=== PATIENT | male | born 1960 | race Caucasian/White ===

== ENCOUNTER 2022-05-04 17:00 | Outpatient (CLI) | payer OTHER, SELFPAY ==
--- NOTE | ~2022-05-04 | XR_ITS ---
XR hand RT min 3V DATE: 05/04/2022 17:18 INDICATION: Injury 2 weeks ago. Fourth finger pain. Previous fourth digit surgery. TECHNIQUE: 3 views of right hand COMPARISON: None FINDINGS: There is chronic partial loss and deformity of the tuft of the distal phalanx of the fourth digit. No recent fracture or dislocation, periosteal reaction or bone destruction, erosive change or chondro calcinosis. IMPRESSION: Chronic deformity of the tuft of the distal phalanx of fourth digit; no acute finding Reviewed, dictated and finalized at location A. IMPRESSION: Chronic deformity of the tuft of the distal phalanx of fourth digit ; no acute finding
== END 2022-05-04 17:01 | disposition home or self-care (01) ==
PROVIDERS: PCP Internal Medicine Infectious Disease; Visit Provider Internal Medicine Infectious Disease
DX: S69.91XA Unspecified injury of right wrist, hand and finger(s), initial encounter (principal); X58.XXXA Exposure to other specified factors, initial encounter
CPT/HCPCS: 73130

== ENCOUNTER 2023-10-18 10:14 | Emergency (ER) | payer OTHER, SELFPAY ==
--- NOTE | ~2023-10-18 | XR_ITS ---
EXAMINATION: XR ankle LT min 3V DATE: 10/18/2023 10:47 INDICATION: Left ankle pain. Fall. TECHNIQUE: 4 views of left ankle were obtained. COMPARISON: None. FINDINGS: Bone alignment is normal. No fracture. There is heterotopic ossification distal to medial m alleolus. Joint spaces are normal. There is ankle soft tissue swelling. IMPRESSION: 1. No fracture. Reviewed, dictated and finalized at location E. LE HOME LABORER IMPRESSION: 1. No fracture.
--- NOTE | ~2023-10-18 | XR_ITS ---
XR knee LT min 4V 10/18/2023 10:48 Indication: Left knee pain Procedure: 4 views left foot Comparison: No prior studies for comparison. Findings: No fracture or traumatic. No significant soft tissue abnormality. No foreign bodies. No killian nt effusion. Impression: 1: Mild osteoarthritis of the left knee. Reviewed, dictated and finalized at location B. LY THERAPIST Impression: 1: Mild osteoarthritis of the left knee.
--- NOTE | ~2023-10-18 | XR_ITS ---
XR shoulder LT min 2V 10/18/2023 10:48 INDICATION: Left shoulder pain PROCEDURE: 4 views left shoulder COMPARISON: No prior studies for comparison. FINDINGS: Fracture, dislocation or subluxation is not identified. The soft tissues appear within norm al limits. No foreign bodies are identified. IMPRESSION: 1: NO ACUTE BONE OR JOINT ABNORMALITY IDENTIFIED. Reviewed, dictated and finalized at location B. PAPER SUBSCRIPTION SOLICITOR
[2023-10-18 10:21] VITALS: BP 169/98; PULSE 91; RESP 16; TEMP 36.7; O2SAT 97
--- NOTE | 2023-10-18 10:32 | ED.LOWEXIN ---
HPI - Extremity Injury (Lower) General Chief Complaint: Extremity Injury, Lower Stated Complaint: FALL/L KNEE/L ANKLE/L SHOULDER INJURY Time Seen by Provider: 10/18/23 10:26 Source: patient and RN notes reviewed Mode of arrival: ambulatory Limitations: no limitations History of Present Illness HPI Narrative: Patient presents today complaining of left knee pain, left ankle pain, and left shoulder pain. Symptoms began last night after he was walking down a hill and twisted his ankle in a hole and fell to the ground. States his shoulder did not start hurting until he was in bed last night. He has been ambulatory with increased pain since the fall. Currently rates his pain 8/10 and has been taking ibuprofen with some relief. Pain is worst in his knee. Denies numbness or tingling in the extremities. Related Data Home Medications Medication Instructions Recorded Confirmed allopurinol 100 mg tablet 100 mg PO DAILY 10/18/23 10/18/23 famotidine 20 mg tablet 20 mg PO DAILY 10/18/23 10/18/23 lisinopril 10 mg tablet 10 mg PO DAILY 10/18/23 10/18/23 metoprolol succinate 50 mg 50 mg PO DAILY 10/18/23 10/18/23 tablet,extended release 24 hr pantoprazole 40 mg tablet,delayed 40 mg PO DAILY 10/18/23 10/18/23 release rosuvastatin 20 mg tablet 20 mg PO DAILY 10/18/23 10/18/23 Allergies Allergy/AdvReac Type Severity Reaction Status Date / Time ONE UNKNOWN MEDICATION Allergy Mild Unknown Uncoded 10/18/23 10:24 ALLERGY TREE POLLEN--MOSTLY OAK Allergy Mild Unknown Uncoded 10/18/23 10:24 Review of Systems Review of Systems: CONSTITUTIONAL: Denies body aches, fever, chills, or sweats. EYES: Denies visual changes, redness, or discharge. ENT: Denies rhinorrhea, congestion, sore throat, or otalgia. CARDIOVASCULAR: Denies chest pain, palpitations, or edema. RESPIRATORY: Denies cough or dyspnea. GASTROINTESTINAL: Denies abdominal pain, nausea, vomiting, or diarrhea. GENITOURINARY: Denies dysuria or hematuria. SKIN: Denies rash, itching, or wounds. MUSCULOSKELETAL: Denies back pain, or myalgia.+ left shoulder pain, left knee pain, left ankle pain NEUROLOGIC: Denies headache, numbness, tingling, or weakness. PSYCH: Denies depression or anxiety. PMFSH Comments At time of signature, I have reviewed and agree with nursing past medical, surgical, social and family history unless otherwise noted. Please see nursing chart for further information. There is no relevant family history pertinent to the presenting complaint Exam Narrative: GENERAL: Well-appearing, well-nourished, and in no acute distress. HEAD: Normocephalic, atraumatic. EYES: EOMI. No redness or drainage. Conjunctivae normal. ENT: Mucous membranes pink and moist. NECK: Normal AROM. CHEST: No respiratory distress. EXTREMITIES: Left shoulder: Tenderness to the anterior shoulder. Pain with range of motion starting at 90? in all directions, as well as internal and external rotation. Distal sensation intact. Capillary refill normal. Radial pulse normal. No edema, ecchymosis noted. Left knee: Tenderness to the medial joint line. Pain with range of motion. No bony tenderness of the patella. No tenderness of the patellar tendon. Distal sensation intact. No edema noted. Left ankle: Tenderness laterally with moderate localized edema. No tenderness medially. No tenderness of the foot. Distal sensation intact. Capillary refill normal. Pedal pulse normal. Full range of motion of the ankle with mild increased pain. SKIN: Warm, dry, no rash. Capillary refill normal. Normal skin turgor. NEURO: No focal deficits. Alert and oriented x3. Gait steady. PSYCH: Normal affect. No signs of depression or anxiety. Course Course Level of Care: Express Care Visit Vital Signs Vital signs: Vital Signs Temperature 98.1 F 10/18/23 10:21 Pulse Rate 91 10/18/23 10:21 Respiratory Rate 16 10/18/23 10:21 Blood Pressure 169/98 H 10/18/23 10:21 Pulse Oxime
== END 2023-10-18 11:05 | disposition home or self-care (01) ==
PROVIDERS: Emergency Provider Nurse Practitioner; PCP Internal Medicine Infectious Disease
DX: S93.402A Sprain of unspecified ligament of left ankle, initial encounter (principal); S89.92XA Unspecified injury of left lower leg, initial encounter; S46.912A Strain of unspecified muscle, fascia and tendon at shoulder and upper arm level, left arm, initial encounter; Z79.899 Other long term (current) drug therapy; W18.39XA Other fall on same level, initial encounter
CPT/HCPCS: 73030; 73564; 73610; 99214; G0463

== ENCOUNTER 2025-01-05 19:35 | Emergency (ER) | payer OTHER, SELFPAY ==
--- NOTE | ~2025-01-05 | XR_ITS ---
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 The glenohumeral and acromioclavicular joint space is maintained The visualized portion of the adjacent left lung is clear. The humeral head is well seated within the glenoid fossa. Extraosseous density adjacent to the acromion suggesting calcific tendinosis, unchanged from 10/18/20 23. IMPRESSION: No acute fracture or anterior dislocation. Reviewed, dictated and finalized at location A. L OPPORTUNITY OFFICER
--- OUTSIDE RECORDS SUMMARY | 2025-01-05 19:37 | XMS_ITS | Encounter Summary ---
Author Organization [facility] Healthcare Address [address] [place] [address] Care Team Providers Care Bankruptcy Judge Name Role Phone Mickey Bowling MD Primary Care Provider [phone] Lily King DO Unavailable [phone] Encounter Details Date Type Department Care Team (Late st Contact Info) Description 01/04/2025 Telephone [facility] [address] [place] [address] Mickey Bowling MD [address] [place] [address] Social History Tobacco Use Types Packs/Day Years Used Date Smoking Tobacco: Never Smokeless Tobacco: Never Alcohol Use Standard Drinks/Week Comments Yes 12 (1 standard drink = 0.6 oz pu re alcohol) PHQ-2 Answer Date Recorded PHQ-2 Total Score (If total score is 3 or more points, staff should administer the PHQ-9) 0 01/01/2025 Personal Safety Answer Date Recorded Have you ever been in or are you currently in a harmful physical or emotional relationship or is someone making you feel afraid or unsafe? 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
--- OUTSIDE RECORDS SUMMARY | 2025-01-05 19:37 | XMS_ITS | Clinical Summary ---
Author Organization [facility] Address [address] [place] [address] Phone Care Team Providers Care Developer Support Engineer Name Role Phone Mickey Bowling Ernesto OCHOA Primary Care Provider [phone] Allergies Active Allergy Reactions Criticality Noted Date Comments Apple Other (see Comments) 10/18/2024 Swelling of tongue Black [place]allo Pollen Allergy Skin Test Other (see Comments) 10/18/2024 Hazelnut (Filbert) Other (see Comments) 024 Swelling of tongue Prunus Persica Other (see Comments) 10/18/2024 Swelling of tongue Peanut (Diagnostic) Other (see Comments) 2023 Swelling of tongue/ difficulty swallowing Citrullus Vulgaris Swelling,Other (see Comments) 10/18/2024 Swelling of tongue Medications lisinopril (PRINIVIL, ZESTRIL) 10 MG Tablet Take 5 mg by mouth daily. 05/01/2024 Active pantoprazole (PROTONIX) 40 MG Tablet Delayed Response Take 1 Tablet by mouth daily. 09/14/2024 Active famotidine (PEPCID) 20 MG Tablet 1 Tablet nightly. 03/23/2024 Active rosuvastatin (CRESTOR) 20 MG Tablet 10 mg. 05/03/2024 Active metoprolol Succinate (TOPROL-XL) 50 MG TABLET SR 24 HR Take 1 Tablet by mouth daily. 09/14/2024 Active Active Problems Problem Noted Date Diagnosed Date Axillary lymphadenopathy 10/18/2024 Chronic left shoulder pain 10/18/2024 Encounters Date Type Department Care Team Description 10/30/2024 Telephone [facility] [address] [place] [address] Ar Nolan MD 10/24/2024 11:23 AM EPIC RADIANT ANALYST - 10/24/2024 11:59 PM EPIC RADIANT ANALYST Hospital En[facility] [address] [place] [address] Ar Nolan MD Discharge Disposition: Discharged to home or Selfcare 10/24/2024 9:06 AM EPIC RADIANT ANALYST - 10/24/2024 11:22 AM EPIC RADIANT ANALYST Hospital Encounter [facility] [address] [place] [address] Provider, Not On File Discharge Disposition: Discharged to home or Selfcare 10/23/2024 Travel 10/18/2024 9:40 AM EPIC RADIANT ANALYST [facility] [address] [place] [address] Ar Nolan MD Axillary lymphadenopathy (Primary Dx); Chronic left shoulder pain Discharge Disposition: Discharged to home or Selfcare 10/18/2024 Travel from Last 3 Months Family History Medical History Relation Name Comments High Cholesterol Father Hypertension Father Heart Disease Mother Heart Murmur High Cholesterol Mother Hypertension Mother Relation Name Status Comments Father Alive Mother Alive Social History Tobacco Use Types Packs/Day Years Used Date Smoking Tobacco: Never Passive Smoke Exposure: Never Smokeless Tobacco: Never Tobacco Cessation:Counseling Given: No Alcohol Use Standard Drinks/Week Comments Yes 0 (1 standard drink = 0.6 oz pur e alcohol) 2 drinks daily Sex and Gender Information Value Date Recorded Sex Assigned at Not on file Legal Sex Male 12:14 AM CDT Gender Identity Not on file Sexual Orientation Not on file Last Filed Vital Signs Vital Sign Reading Time Taken Comments Blood Pressure 157/94 10/18/2024 10:15 AM EPIC RADIANT ANALYST Pulse 82 10/18/2024 10:15 AM EPIC RADIANT ANALYST Temperature 36.9 C (98.4 F) 10/18/2024 10:15 AM EPIC RADIANT ANALYST Respiratory Rate 18 10/18/2024 10:1 5 AM EPIC RADIANT ANALYST Oxygen Saturation 97% 10/18/2024 10: 15 AM EPIC RADIANT ANALYST Inhaled Oxygen Concentration - - Weight 90.6 kg (199 lb 11.2 oz) 024 10:15 AM EPIC RADIANT ANALYST Height 177.8 cm (5' 10 ) 10/18/2024 10: 15 AM EPIC RADIANT ANALYST Body Mass Index 28.65 10/18/2024 10:15 AM EPIC RADIANT ANALYST Plan of Treatment Health Maintenance Due Date Last Done Comments Hepatitis C Virus (HCV) Screening 1961 Cologuard 2011 Immunochemical Fecal Occult Blood 2011 Pneumococcal Immunization (50+ years) (1 of 1 - PCV) 2011 PSA Discussion 2016 Colonoscopy 06/16/2034 06/16/2024 Colorectal Cancer Screening 06/16/2034 Respiratory Syncytial Virus (RSV) Immunization (Adult) (1 - 1-dose 75+ series) 2036 06/16/2024 DTaP/Tdap/Td Immunization Discontinued 09/19/2009 TdaP Immunization Completed 09/19/2009 Zoster Immunization Completed 03/30/2019, 9 Influenza Immunization Completed , 12/24/2022, 09/04/2021, Additional history exists SARS-COV-2 Immunization Completed 09/20/20 24, 01/26/2022, 04/01/2021, Additional history exists Hepatitis B Immunization Aged Out No longer eligible based on patient's age to complete this topic Meningococcal Immunization (ACWY) Aged Out No longer eligible based on patient's age to complete this topic Rotavirus Immunization Aged Out No lo nger eligible based on patient's age to complete this topic Procedures Procedure Name Priority Date/Time Associated Diagnosis Comments CT CHEST W CONTRAST Less Than 2 weeks 10/24/2024 11:55 AM EPIC RADIANT ANALYST Axillary lymphadenopathy POCT CREATININE Routine 10/24/2024 11:44 [address]IC [address] A[address] CT REFERENCE IMAGES FOR IMAGE IMPORT Routine 10/24/2024 9:06 AM EPIC RADIANT ANALYST from Last 3 Months Results * CT CHEST W CONTRAST (10/24/2024 11:55 AM EPIC RADIANT ANALYST) Anatomical Region Laterality Modality Chest N/A Computed Tomogra phy 10/24/2024 12:4 8 PM EPIC RADIANT ANALYST Impressions 10/24/2024 12:50 PM EPIC RADIANT ANALYST IMPRESSION: No acute findings identified to suggest etiology of the patient's symptoms. A few physiological appearing fatty lymph nodes are seen in the left axilla. Narrative 10/24/2024 12:50 PM EPIC RADIANT ANALYST EXAM DESCRIPTION: CT CHEST W CONTRAST REASON FOR STUDY: Lump of left axilla x 6 weeks with US on 10/09/24 showing enlarged abnormal lymph nodes. TECHNIQUE: CT scan of the chest performed with intravenous contrast using helical scanning technique with dynamic intravenous contrast injection. Reconstructed coronal and sagittal MPR images reviewed. All images stored on PACS. Automated exposure control was used as a dose optimization technique for this examination. CONTRAST TYPE/DOSE: 98mL of IOPAMIDOL 76 % IV SOLN injected via Intravenous COMPARISON: None available FINDINGS: LUNGS: No nodules or masses. No pneumonia. PLEURA: No effusion. No pneumothorax. MEDIASTINUM/PEGGY: No identified masses or abnormal nodes. HEART: Heart size is normal with no pericardial effusion. VASCULATURE: No thoracic aortic aneurysm. AXILLA: No adenopathy. A few physiological appearing fatty lymph nodes are seen. CHEST WALL: No masses. No subcutaneous air. HARDWARE/LINES/TUBES: None. UPPER ABDOMEN: No significant abnormality. MUSCULOSKELETAL: No significant abnormality. OTHER: No other significant abnormality. THIS IS AN ELECTRONICALLY VERIFIED FINAL REPORT 10/24/2024 12:48 PM - Electronically signed by Jayesh Beasley M.D. JA: [facility] Report ID: [id number] Reading Location: [id number] Procedure Note Jayesh Beasley MD - 10/24/2024 EXAM DESCRIPTION: CT CHEST W CONTRAST REASON FOR STUDY: Lump of left axilla x 6 weeks with US on 10/09/24 showing enlarged abnormal lymph nodes. TECHNIQUE: CT scan of the chest performed with intravenous contrast using helical scanning technique with dynamic intravenous contrast injection. Reconstructed coronal and sagittal MPR images reviewed. All images stored on PACS. Automated exposure control was used as a dose optimization technique for this examination. CONTRAST TYPE/DOSE: 98mL of IOPAMIDOL 76 % IV SOLN injected via Intravenous COMPARISON: None available FINDINGS: LUNGS: No nodules or masses. No pneumonia. PLEURA: No effusion. No pneumothorax. MEDIASTINUM/PEGGY: No identified masses or abnormal nodes. HEART: Heart size is normal with no pericardial effusion. VASCULATURE: No thoracic aortic aneurysm. AXILLA: No adenopathy. A few physiological appearing fatty lymph nodes are seen. CHEST WALL: No masses. No subcutaneous air. HARDWARE/LINES/TUBES: None. UPPER ABDOMEN: No significant abnormality. MUSCULOSKELETAL: No significant abnormality. OTHER: No other significant abnormality. THIS IS AN ELECTRONICALLY VERIFIED FINAL REPORT 10/24/2024 12:48 PM - Electronically signed by Jayesh Beasley M.D. JA: [facility] Report ID: [id number] Reading Location: [place] [address] IMPRESSION: No acute findings identified to suggest etiology of the patient's symptoms. A few physiological appearing fatty lymph nodes are seen in the left axilla. us Ar Nolan MD IMG CT ORDERABLES Final Result * POCT Creatinine (10/24/2024 11:44 AM EPIC RADIANT ANALYST) CREATININE - POCT 1.1 0.6 - 1.3 mg/dL 10/24/2024 11:47 AM EPIC RADIANT ANALYST [facility] Blood 10/24/2024 11:4 4 AM EPIC RADIANT ANALYST 10/24/2024 11:47 AM EPIC RADIANT ANALYST us None Provider POINT OF CARE TESTING Final Resu lt [facility] [address] [place] [address] * CT REFERENCE IMAGES FOR IMAGE IMPORT (10/24/2024 9:06 AM EPIC RADIANT ANALYST) us Not On File Provider IMG CT ORDERABLES Final Res ult from Last 3 Months Insurance [facility] Care Teams Developer Support Engineer Relationship Specialty Start Date End Date Mickey Bow[place] [address] [place] [address] PCP - General Infectious Disease 10/16/24
--- OUTSIDE RECORDS SUMMARY | 2025-01-05 19:38 | XMS_ITS | Encounter Summary ---
Author Organization [facility] Address [address] [place] [address] Phone Care Team Providers Care Molded Frames Assembler Name Role Phone Mickey Bowling MD Primary Care Provider [phone] Lily King DO Unavailable [phone] Encounter Details Date Type Department Care Team (Late st Contact Info) Description 05/04/2022 Orders Only [facility] [address] [place] [address] Scanning, Provider Social History Tobacco Use Types Packs/Day Years Used Date Smoking Tobacco: Never Smokeless Tobacco: Never Alcohol Use Standard Drinks/Week Comments Yes 12 (1 standard drink = 0.6 oz pu re alcohol) PHQ-2 Answer Date Recorded PHQ-2 Total Score (If total score is 3 or more points, staff should administer the PHQ-9) 0 02/28/2021 Sex and Gender Information Value Date Recorded Sex Assigned at Not on file Legal Sex Male 2:03 PM SAFETY ADMIN ASSISTANT Gender Identity Not on file Sexual Orientation Not on file documented as of this encounter Plan of Treatment Not on file documented as of this encounter Procedures Procedure Name Priority Date/Time Associated Diagnosis Comments SCAN - RADIOLOGY/IMAGING 05/04/2022 documented in this encounter Results * SCAN - RADIOLOGY/IMAGING (05/04/2022) Anatomical Region Laterality Modality Other us Provider Scanning Final Result documented in this encounter Visit Diagnoses Not on filedocumented in this encounter Additional Health Concerns Infection Onset Date Last Indicated Resolved Time COVID: Suspected 10/20/2022 10/20/2022 10/20/2022 3:53 PM SAFETY ADMIN ASSISTANT documented as of this encounter Care Teams Molded Frames Assembler Relationship Specialty Start Date End Date Mickey Bowling MD [address] [address] PCP - General 08/10/11 Lily King DO [address] [address] Consulting Physician Otolaryngology 07/20/19 documented as of this encounter
--- OUTSIDE RECORDS SUMMARY | 2025-01-05 19:38 | XMS_ITS | Clinical Summary ---
Author Organization [facility] [address] Address [address] [place] [address] Phone Care Team Providers Care Chief Compressor Station Engineer Name Role Phone Mickey Bowling MD Primary Care Provider [phone] Lily King DO Unavailable [phone] Allergies Active Allergy Reactions Criticality Noted Date Comments Apple Other (See comments) Low . Banana Swelling Medium 07/07/2018 Throat swells Greenlee Peanut Other (See comments) Low . Watermelon Anaphylaxis High 07/26/2018 Medications famotidine (PEPCID) 20 mg tablet TAKE 1 TABLET NIGHTLY 90 tablet 3 4 Active lisinopriL (PRINIVIL,ZESTRIL ) 10 mg tablet TAKE 1 TABLET DAILY 90 tablet 3 4 Active rosuvastatin (CRESTOR) 20 mg tablet TAKE ONE-HALF (1/2) TABLET DAILY 90 tablet [address] (PROTONIX) 40 mg EC tabletIndications :Gastroesophageal reflux disease without esophagitis TAKE 1 TABLET DAILY 90 tablet 1 4 Active allopurinoL (ZYLOPRIM) 100 mg tablet TAKE 1 TABLET DAILY 90 tablet 1 4 Active metoprolol XL (TOPROL-XL) 50 mg extended release tabletIndications :Essential hypertension TAKE 1 TABLET DAILY 90 tablet 1 4 Active Active Problems Problem Noted Date Diagnosed Date Enlarged lymph nodes in armpit 10/09/2024 Assessment & Plan (01/01/2025 6:27 PM REAL ESTATE MANAGEMENT SPECIALIST): WITH A NEG WORK UP BY HEMATOLOGY AND A NEG CT OF THE CHEST THOUGHT TO BE REACTIVE Assessment & Plan (10/09/2024 4:40 PM REAL ESTATE MANAGEMENT SPECIALIST): BENIGN APPREARNECE REACTIVE IN NATURE ARRANGE LEFT AXILLARY US Gastric wall thickening 06/07/2024 Colon wall thickening 06/07/2024 Routine physical examination 06/07/2024 Assessment & Plan (06/23/2024 7:03 AM CDT): IMMUNIZATIONS WERE REVIEWED ESSENTIAL HYPERTENSION GOAL BP LESS THEN 130/ 80 OR UNDER MIXED HYPERLIPIMDEIA : GOAL LDL IS UNDER 100 DISCUSSED DIETARY CHANGES AND ALSO LIMITING ALCOHOL USAGE IDIOPATHIC GOUT : ON ALLOPURINOL EGD/ COLONSCOPY AND CT OF THE ABDOMEN FINDINGS REVIEWED ARRANGE LIVER US FOR F/U ON POSSIBLITY OF LIVER CIRRHOSIS FINDING EYE EXAM IS UPTODATE DENTAL EXAM UPTODATE Colicky LLQ abdominal pain 05/11/2024 Assessment & Plan (05/11/2024 6:24 PM CDT): DDX INCLUDE : DIVERTICULTIS / ARRANGE BW AND START AUGMENTIN 875 MG PO BID ARRANGE CT OF THE ABODMEN AND PELVIS WITH ORAL AND IV CONTRAST ALSO CBC/CMP/ AMYLASE AND LIPASE DISCUSSED A LOW FIBER DIET DURING THE NEXT 48 HOURS THEN A HIGH FIBER DIET . COLONSCOPY IN 2019 WAS NEG Hemorrhoids 11/12/2022 Assessment & Plan (11/12/2022 10:57 AM REAL ESTATE MANAGEMENT SPECIALIST): When he had the acute pain a week ago this hemorrhoid likely thrombosed. Now he is on the back end of things were symptoms are returning back to baseline. Nothing acutely to do with this area. We have discussed surgical options to remove the hemorrhoid columns to prevent them from coming back. We have also discussed just conservative means with a good bowel regimen and avoiding straining. He is going to wait to see if symptoms worsen or return prior to any further intervention. I think this is reasonable. He will call us back if anything changes or if he would like to set up surgery. Family history of colon cancer 02/06/2020 Overview (02/06/2020): Added automatically from request for surgery [id number] Laryngeal spasm 04/07/2019 Assessment & Plan (07/13/2019 4:19 PM CDT): Continue Protonix and Zantac Continue nasal saline and Astelin Cetirizine 10 mg daily Call if no improvement in 6 weeks Assessment & Plan (04/07/2019 3:14 PM CDT): Continue Pantoprazole in the AM, start Zantac at bedtime LPR discussed and Handout provided Allergic rhinitis due to pollen 04/07/2019 Assessment & Plan (07/13/2019 4:19 PM CDT): Continue Protonix and Zantac Call if no improvement in 6 weeks Assessment & Plan (04/07/2019 3:09 PM CDT): Nasal saline followed Astelin 2 sprays into each nostril while looking down over the sink, do not sniff in or blow nose after use twice daily Varicose veins of lower extremity with pain, rig ht 10/31/2018 Overview (10/31/2018): Added automatically from request for surgery [id number] Varicose veins of lower extr emities with complications, right 10/31/2018 Overview (10/31/2018): Added automatically from request for surgery [id number] Shoulder pain 01/07/2015 Overview (03/05/2017): Shoulder pain Gastroesophageal reflux disease without esophagi tis 01/07/2015 Overview (03/05/2017): Acid reflux Essential hypertension 04/14/2014 Overview (03/04/2017): Hypertension Assessment & Plan (01/01/2025 6:27 PM REAL ESTATE MANAGEMENT SPECIALIST): GOAL BP IS 130/80 OR LESS LOW NA DIET Obstructive sleep apnea syndrome 04/14/2014 Overview (03/04/2017): CRISTÓBAL (obstructive sleep apnea) Mixed hyperlipidemia 04/14/2014 Overview (03/04/2017): Hyperlipidemia Assessment & Plan (01/01/2025 6:27 PM REAL ESTATE MANAGEMENT SPECIALIST): GOAL LDL IS UNDER 100 LFT ARE NL Allergic conjunctivitis 04/14/2014 Overview (03/04/2017): Allergic conjunctivitis Encounters Date Type Department Care Team Description 01/04/2025 Telephone [facility] [address] [place] [address] Mickey Bowling MD 01/01/2025 4:15 PM REAL ESTATE MANAGEMENT SPECIALIST Ancillary Procedure [facility] [address] [place] [address] Chronic bilateral low back pain, unspecified whether sciatica present 01/01/2025 3:15 PM REAL ESTATE MANAGEMENT SPECIALIST Office Visit [facility] [address] [place] [address] Mickey Bowling MD Chronic bilateral low back pain, unspecified whether sciatica present (Primary Dx); Essential hypertension; Prostate cancer screening; Enlarged lymph nodes in armpit; Mixed hyperlipidemia 12/26/2024 8:50 AM REAL ESTATE MANAGEMENT SPECIALIST Lab [facility] [address] [place] [address] Need for hepatitis B screening test; Mixed hyperlipidemia 12/26/2024 8:15 AM REAL ESTATE MANAGEMENT SPECIALIST Ancillary Procedure [facility] [address] [place] [address] scan 2024 Telephone [facility] [address] [place] [address] Mickey Bowling MD 10/13/2024 Telephone [facility] [address] [place] [address] Gail Chen RN 10/09/2024 3:45 PM REAL ESTATE MANAGEMENT SPECIALIST Ancillary Procedure [facility] [address] [place] [address] Enlarged lymph node 10/09/2024 3:15 PM REAL ESTATE MANAGEMENT SPECIALIST Office Visit [facility] [address] [place] [address] Mickey Bowling MD Enlarged lymph node (Primary Dx); Enlarged lymph nodes in armpit from Last 3 Months Immunizations Name Administration Dates Next Due Influenza, Quadrivalent, Spl it, Intramuscular 01/08/2019,11/06/2016 Influenza, Quadrivalent, Spl it, Preservative Free, Intramuscular 12/24/2022,09/04/2021,11/03/2020 Influenza, Split 11/15/2013,10/12/2012 Influenza, Trivalent, IM (MDV) 12/20/2014,2012 Influenza, Trivalent, Preser vative Free, Intramuscular 09/20/2024 Influenza, Unspecified 09/20/2023,11/03/2020,08/2019 Moderna SARS-CoV-2 Monovalen t Vaccination (12+ YRS) 01/26/2022 Tdap 09/19/2009 ZOSTER Recombinant 03/30/2019,01/08/2019 Surgical History Surgery Date Site/Laterality Comments TONSILLECTOMY 11/29/1982 - 11/28/1983 tonsils removed HERNIA REPAIR 11/29/1982 - 11/28/1983 hernia repair EYE SURGERY 11/29/1982 - 11/28/1983 eye surgery HERNIA REPAIR 11/29/1971 - 11/28/1972 Hernia repair VASECTOMY 11/29/1999 - 11/28/2000 Vasectomy SURGERY SCROTAL / TESTICULAR 11/29/1973 - 11/28/1974 Undescending Testicles SHOULDER SURGERY 11/29/2014 - 11/28/2015 Right COLONOSCOPY 01/28/2020 - 02/27/2020 Medical History Medical History Date Comments Hx Other Medical Tonsillectomy i n 1982.; Comments: GIOVANNA 01/07/2015 - Hx Other Medical Eye surgery in 1982.; Comments: GIOVANNA 01/07/2015 - Hx Other Medical Hernia surg. in 1975, 1982 and 1989.; Comments: GIOVANNA 01/07/2015 - Hypertension Hyperlipidemia Blood clot associated with v ein wall inflammation Sleep apnea Does not wear pr escibed CPAP Other complications of anest hesia, sequela Slow to wake up to anesthesi a given in with eye surgery (Pterygium) PONV (postoperative nausea and vomiting) Personal history of other me dical treatment varicose veins biltateral le gs History of Naheed fundoplication 2005 Family History Medical History Relation Name Comments Hypertension Brother 3 Hypertension; Other Brother 4 Cholesterol; Alcohol abuse Father Alcoholism; Hypertension Father Hypertension; / Hypertension; Other Father Cholesterol; Hypertension Mother Hypertension; / Hypertension; Other Mother Pancreas proble ms; Relation Name Status Comments Brother 1 Alive Brother 2 Alive Brother 3 Brother 4 Father Alive Mother Alive Social History Tobacco [...] on file Legal Sex Male 2:03 PM REAL ESTATE MANAGEMENT SPECIALIST Gender Identity Not on file Sexual Orientation Not on file Obstetrics History Last Filed Vital Signs Vital Sign Reading Time Taken Comments Blood Pressure 124/72 01/01/2025 3:03 PM REAL ESTATE MANAGEMENT SPECIALIST Pulse 90 01/01/2025 3:03 PM REAL ESTATE MANAGEMENT SPECIALIST Temperature 36.7 C (98 F) 01/01/2025 3:03 PM REAL ESTATE MANAGEMENT SPECIALIST Respiratory Rate 16 01/01/2025 3:03 PM REAL ESTATE MANAGEMENT SPECIALIST Oxygen Saturation 96% 01/01/2025 3:03 PM REAL ESTATE MANAGEMENT SPECIALIST Inhaled Oxygen Concentration - - Weight 93.4 kg (206 lb) 01/01/2025 3:03 PM REAL ESTATE MANAGEMENT SPECIALIST Height 177.8 cm (5' 10 ) 01/01/2025 3:03 PM REAL ESTATE MANAGEMENT SPECIALIST Body Mass Index 29.56 01/01/2025 3:03 PM REAL ESTATE MANAGEMENT SPECIALIST Plan of Treatment Health Maintenance Due Date Last Done Comments Hepatitis B Screening 1979 DTaP/Tdap/Td Vaccine (2 - Td or Tdap) 09/19/2019 09/19/2009 Regular Well Visit/Exam 18-64 06/22/2025 06/22/2024, 06/08/2023, 03/03/2022, Additional history exists Prostate Cancer Screening-PSA 12/15/2025 12/15/2023, 12/15/2022, 02/25/2022, Additional history exists Depression Screening 01/01/2026 01/01/2025, 06/22/2024, 06/08/2023, Additional history exists Colon Cancer Screening-Colonoscopy 06/16/2034 06/16/2024, 02/13/2020 Zoster Vaccine Completed 03/30/2019, 01/08/2019 Hepatitis C Screening Completed 02/17/2021 Colon Cancer Screening-CT Colonography Discontinued 06/16/2024, 02/13/2020 Colon Cancer Screening-DNA Stool Discontinued 06/16/2024, 02/13/2020 Colon Cancer Screening-FIT Discontinued 06/16/2024, Colon Cancer Screening-Sigmoidoscopy Discontinued 06/16/2024, 02/13/2020 Covid-19 Vaccine Completed 09/20/2024, , 04/01/2021, Additional history exists Influenza Vaccine Completed 09/20/2024, , 12/24/2022, Additional history exists Pneumococcal vaccine <65 Aged Out No longer eligible based on patient's age to complete this topic Procedures Procedure Name Priority Date/Time Associated Diagnosis Comments XR SPINE LUMBAR 2 OR 3 VIEWS Schedule Routine, Read Routine (OP Routine) 01/01/2025 4:01 PM REAL ESTATE MANAGEMENT SPECIALIST Chronic bilateral low back pain, unspecified whether sciatica present XR HIP RIGHT 2 OR 3 VIEWS Schedule Routine, Read Routine (OP Routine) 01/01/2025 4:01 PM REAL ESTATE MANAGEMENT SPECIALIST Chronic bilateral low back pain, unspecified whether sciatica present US RUQ Schedule Routine, Read Routine (OP Routine) 12/26/2024 8:35 AM REAL ESTATE MANAGEMENT SPECIALIST Abnormal CT scan EGFR Routine 12/26/2024 8:06 AM REAL ESTATE MANAGEMENT SPECIALIST Mixed hyperlipidemia DIFFERENTIAL AUTO Routine 12/26/2024 8:0 6 AM REAL ESTATE MANAGEMENT SPECIALIST Mixed hyperlipidemia LIPID PANEL Routine 12/26/2024 8:06 AM REAL ESTATE MANAGEMENT SPECIALIST Mixed hyperlipidemia COMPREHENSIVE METABOLIC PANEL Routine 12/26/2024 8:06 AM REAL ESTATE MANAGEMENT SPECIALIST Mixed hyperlipidemia CBC WITH AUTO DIFFERENTIAL Routine 12/26/2024 8:06 AM REAL ESTATE MANAGEMENT SPECIALIST Mixed hyperlipidemia HEPATITIS B SURFACE ANTIBODY (IMMUNE STATUS) Routine 12/26/2024 8:06 AM REAL ESTATE MANAGEMENT SPECIALIST Need for hepatitis B screening test US AXILLARY NON-BREAST LEFT Schedule Routine, Read Routine (OP Routine) 10/09/2024 4:08 PM REAL ESTATE MANAGEMENT SPECIALIST Enlarged lymph node COLONOSCOPY 06/16/2024 9:03 AM CDT PSA SCREEN Routine 12/15/2023 9:28 AM REAL ESTATE MANAGEMENT SPECIALIST Routine physical examination Prostate cancer screening HEPATITIS PANEL, ACUTE Routine 02/17/2021 8:14 AM CDT Elevated LFTs from Last 3 Months or Most Recently Relevant to Health Maintenance Results * XR Hip Right 2 or 3 Views (01/01/2025 4:01 PM REAL ESTATE MANAGEMENT SPECIALIST) Anatomical Region Laterality Modality Lower Extremities, Hip, Pelvis Right C omputed Radiography 01/01/2025 9:23 PM REAL ESTATE MANAGEMENT SPECIALIST Narrative 01/01/2025 9:24 PM REAL ESTATE MANAGEMENT SPECIALIST EXAM DESCRIPTION: XR HIP RIGHT 2 OR 3 VIEWS; XR SPINE LUMBAR 2 OR 3 VIEWS REASON FOR STUDY: PAIN Pain s/p popping felt during a walk x 2 months ago FINDINGS: Two views right hip and three views lumbar spine submitted with comparison 05/03/2020, 06/02/2024. Lumbar spine: No acute fracture. Alignment is normal. There is mild diffuse lumbar degenerative disc disease. Inferior lumbar facet osteoarthritis is present. Arterial atherosclerosis is noted. Right hip: No acute fracture. Alignment is normal. There is mild right hip osteoarthritis. IMPRESSION: Mild diffuse lumbar degenerative disc disease with inferior lumbar facet osteoarthritis. Mild right hip osteoarthritis. THIS IS AN ELECTRONICALLY VERIFIED FINAL REPORT 01/01/2025 9:24 PM - Electronically signed by Geo Rosario M.D. MF: [place] Report ID: [id number] Reading Location: [id number] Procedure Note Geo Rosario MD - 01/01/2025 EXAM DESCRIPTION: XR HIP RIGHT 2 OR 3 VIEWS; XR SPINE LUMBAR 2 OR 3 VIEWS REASON FOR STUDY: PAIN Pain s/p popping felt during a walk x 2 months ago FINDINGS: Two views right hip and three views lumbar spine submitted with comparison 05/03/2020, 06/02/2024. Lumbar spine: No acute fracture. Alignment is normal. There is mild diffuse lumbar degenerative disc disease. Inferior lumbar facet osteoarthritis ispresent. Arterial atherosclerosis is noted. Right hip: No acute fracture. Alignment is normal. There is mild right hip osteoarthritis. IMPRESSION: Mild diffuse lumbar degenerative disc disease with inferior lumbar facet osteoarthritis. Mild right hip osteoarthritis. THIS IS AN ELECTRONICALLY VERIFIED FINAL REPORT 01/01/2025 9:24 PM - Electronically signed by Geo Rosario M.D. MF: [place] Report ID: [id number] Reading Location: [place] [address] us Mickey Bowling MD IMG XR PROCEDURES Final Re sult * XR Spine Lumbar 2 or 3 Views (01/01/2025 4:01 PM REAL ESTATE MANAGEMENT SPECIALIST) Anatomical Region Laterality Modality Spine N/A Computed Radiogr aphy 01/01/2025 9:23 PM REAL ESTATE MANAGEMENT SPECIALIST Narrative 01/01/2025 9:24 PM REAL ESTATE MANAGEMENT SPECIALIST EXAM DESCRIPTION: XR HIP RIGHT 2 OR 3 VIEWS; XR SPINE LUMBAR 2 OR 3 VIEWS REASON FOR STUDY: PAIN Pain s/p popping felt during a walk x 2 months ago FINDINGS: Two views right hip and three views lumbar spine submitted with comparison 05/03/2020, 06/02/2024. Lumbar spine: No acute fracture. Alignment is normal. There is mild diffuse lumbar degenerative disc disease. Inferior lumbar facet osteoarthritis is present. Arterial atherosclerosis is noted. Right hip: No acute fracture. Alignment is normal. There is mild right hip osteoarthritis. IMPRESSION: Mild diffuse lumbar degenerative disc disease with inferior lumbar facet osteoarthritis. Mild right hip osteoarthritis. THIS IS AN ELECTRONICALLY VERIFIED FINAL REPORT 01/01/2025 9:24 PM - Electronically signed by Geo Rosario M.D. MF: [place] Report ID: [id number] Reading Location: [id number] Procedure Note Geo Rosario MD - 01/01/2025 EXAM DESCRIPTION: XR HIP RIGHT 2 OR 3 VIEWS; XR SPINE LUMBAR 2 OR 3 VIEWS REASON FOR STUDY: PAIN Pain s/p popping felt during a walk x 2 months ago FINDINGS: Two views right hip and three views lumbar spine submitted with comparison 05/03/2020, 06/02/2024. Lumbar spine: No acute fracture. Alignment is normal. There is mild diffuse lumbar degenerative disc disease. Inferior lumbar facet osteoarthritis ispresent. Arterial atherosclerosis is noted. Right hip: No acute fracture. Alignment is normal. There is mild right hip osteoarthritis. IMPRESSION: Mild diffuse lumbar degenerative disc disease with inferior lumbar facet osteoarthritis. Mild right hip osteoarthritis. THIS IS AN ELECTRONICALLY VERIFIED FINAL REPORT 01/01/2025 9:24 PM - Electronically signed by Geo Rosario M.D. 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 TECHNIQUE: Ultrasound of the right upper quadrant of the abdomen was performed with grayscale and color doppler. COMPARISON: 06/02/2024 FINDINGS: PANCREAS: Visualized portions of the pancreas are within normal limits. Portions of the pancreatic body and tail are obscured due to bowel gas. LIVER: The liver appears normal in echotexture and echogenicity. No focal lesion identified. The main portal vein is patent with antegrade flow. GALLBLADDER: The gallbladder appears unremarkable. No cholelithiasis. No gallbladder wall thickening or pericholecystic fluid. No positive sonographic [place] sign reported. BILIARY: There is no intrahepatic or extrahepatic biliary ductal dilatation. Common bile duct measures 0.4 cm in diameter. RIGHT KIDNEY: Normal size. Normal echogenicity. No solid mass or cyst. No hydronephrosis. Measures 11.6 cm in length. OTHER: No other significant findings. IMPRESSION: No acute abnormality. THIS IS AN ELECTRONICALLY VERIFIED FINAL REPORT 12/27/2024 9:38 AM - Electronically signed by Vito Sarah M.D. 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 TECHNIQUE: Ultrasound of the right upper quadrant of the abdomen wasperformed with grayscale and color doppler. COMPARISON: 06/02/2024 FINDINGS: PANCREAS: Visualized portions of the pancreas are within normal limits. Portions of the pancreatic body and tail are obscured due to bowel gas. LIVER: The liver appears normal in echotexture and echogenicity. Nofocal lesion identified. The main portal vein is patent with antegrade flow. GALLBLADDER: The gallbladder appears unremarkable. No cholelithiasis.No gallbladder wall thickening or pericholecystic fluid. No positivesonographic [place] sign reported. BILIARY: There is no intrahepatic or extrahepatic biliary ductaldilatation. Common bile duct measures 0.4 cm in diameter. RIGHT KIDNEY: Normal size. Normal echogenicity. No solid mass or cyst.No hydronephrosis. Measures 11.6 cm in length. OTHER: No other significant findings. IMPRESSION: No acute abnormality. THIS IS AN ELECTRONICALLY VERIFIED FINAL REPORT 12/27/2024 9:38 AM - Electronically signed by Vito Sarah M.D. RB: EMILIANO Report ID: [id number] Reading Location: [place] [address] us Mickey Bowling MD IMG US PROCEDURES Final Re sult * eGFR (12/26/2024 8:06 AM REAL ESTATE MANAGEMENT SPECIALIST) eGFR 77 >=60 mL/min/1. 73 m2 Comment: Interpretive Data Reference Interval Normal >/= 90 mL/min/1.73m2 Mildly decreased* 60 - 89 mL/min/1.73m2 Mildly to moderately decreased 45 - 59 mL/min/1.73m2 Moderately to severely decreased 30 - 44 mL/min/1.73m2 Severely decreased 15 - 29 mL/min/1.73m2 Kidney Failure < 15 mL/min/1.73m2 *Relative to young adult level Estimated glomerular filtration rate is determined by the 2020 CKD-EPI equation recommended by the National Kid[employer] Foundation (A Unifying Approach to GFR Estimation: Recommendations of the NKF-ASK Task Force on Reassessing the Inclusion of Race in Diagnosing Kidney Disease, JASN 2020). The CKD-EPI equation should not be used for patients with unstable renal function and has not been validated in children and those over 70. Current interpretive data was last reviewed 2021. Testing performed by: [facility], [address] [place] [address], [place]., [address] Blood 12/26/2024 8:06 AM REAL ESTATE MANAGEMENT SPECIALIST 12/26/2024 1:44 PM REAL ESTATE MANAGEMENT SPECIALIST us Mickey Bowling MD LAB BLOOD ORDERABLES Final Result [facility] [id number] [place] [address] Department [place] [address] * Differential, auto (12/26/2024 8:06 AM REAL ESTATE MANAGEMENT SPECIALIST) Neutrophil abs 3.2 1.5 - 6.5 K/cumm Comment:Testing performed by : [facility], [address] [place] [address]., [address] Imm gran abs 0.0 0.0 - 0.1 K/cumm CERNER Comment:Testing performed by : [facility], [address] [place] [address]., [address] Lymphocyte abs 1.6 0.8 - 3.3 K/cumm CERNER Comment:Testing performed by : [address] [address] Monocyte abs 0.8 0.2 - 0.8 K/cumm CERNER Comment:Testing performed by : [address] [address] Eosinophil abs 0.1 0.0 - 0.5 K/cumm CERNER Comment:Testing performed by : [address] [address] Basophil abs 0.1 0.0 - 0.1 K/cumm CERNER Comment:Testing performed by : [address] [address] Neutrophil pct 55.6 % CERNER Comment: Interpretive Data Percent cell count reference ranges are not reported, since discordance with absolute values may lead to misinterpretation of CBC data. Current Interpretive Data was last revised on 2018. Testing performed by: [address] [address] Imm gran pct 0.7 % CERNER Comment: Interpretive Data Percent cell count reference ranges are not reported, since discordance with absolute values may lead to misinterpretation of CBC data. Current Interpretive Data was last revised on 2018. Testing performed by: [address] [address] Lymphocyte pct 27.0 % CERNER Comment: Interpretive Data Percent cell count reference ranges are not reported, since discordance with absolute values may lead to misinterpretation of CBC data. Current Interpretive Data was last revised on 2018. Testing performed by: [facility], [address] [place] [address]., [id number] Monocyte pct 13.4 % [facility] Comment: Interpretive Data Percent cell count reference ranges are not reported, since discordance with absolute values may lead to misinterpretation of CBC data. Current Interpretive Data was last revised on 2018. Testing performed by: [address] [address] Eosinophil pct 1.9 % [facility] Comment: Interpretive Data Percent cell count reference ranges are not reported, since discordance with absolute values may lead to misinterpretation of CBC data. Current Interpretive Data was last revised on 2018. Testing performed by: [address] [address] Basophil pct 1.4 % [facility] Comment: Interpretive Data Percent cell count reference ranges are not reported, since discordance with absolute values may lead to misinterpretation of CBC data. Current Interpretive Data was last revised on 2018. Testing performed by: [address] [address] Blood 12/26/2024 8:06 AM REAL ESTATE MANAGEMENT SPECIALIST 12/26/2024 1:21 PM REAL ESTATE MANAGEMENT SPECIALIST Mickey Bowling MD LAB BLOOD ORDERABLES Final Result [address] Department [place] [address] * CBC with auto differential (12/26/2024 8:06 AM REAL ESTATE MANAGEMENT SPECIALIST) WBC 5.7 3.8 - 9.9 K/cumm Comment:Testing performed by : [address] [address] Hgb 14.5 13.0 - 17.5 g/dL [facility] Comment:Testing performed by : [address], [address] Hct 43.7 38.9 - 50.3 % ARMOND Comment:Testing performed by : [address] [address] Plt 238 150 - 400 K/cumm CERNER CH Comment:Testing performed by : [address], [address] MPV 10.9 9.1 - 12.3 fL CERNER CH Comment:Testing performed by : [facility], [address] [place] [address], [address] RBC 4.77 4.30 - 5.80 M/cumm CERNER CH Comment:Testing performed by : [address], [address] MCV 91.6 81.3 - 96.4 fL CERNER CH Comment:Testing performed by : [address], [address] MCH 30.4 27.1 - 33.3 pg CERNER CH Comment:Testing performed by : [address], [address] MCHC 33.2 32.3 - 35.7 g/dL CERNER CH Comment:Testing performed by : [address], [address] RDW CV 12.6 11.1 - 14.9 % CERNER CH Comment:Testing performed by : [address], [address] RDW SD 42.0 35.7 - 48.1 fL CERNER CH Comment:Testing performed by : [address], [address] NRBC abs 0.00 0.00 - 0.01 K/cumm CERNER CH Comment:Testing performed by : [address], [address] Blood 12/26/2024 8:06 AM REAL ESTATE MANAGEMENT SPECIALIST 12/26/2024 1:21 PM REAL ESTATE MANAGEMENT SPECIALIST Mickey Bowling MD LAB BLOOD ORDERABLES Final Result [address] Department [place] [address] * Hepatitis B surface antibody (immune status) Blood (12/26/2024 8:06 AM REAL ESTATE MANAGEMENT SPECIALIST) HBsAb (immune status) Nonreactive Comment: Interpretive Data Nonreactive: This result is consistent with a lack of immunity to Hepatitis B Virus when used in the setting of routine screening. Equivocal: The immune status of the individual should be further assessed, if appropriate, after consideration of clinical status, risk factors, and additional diagnostic information. Reactive: This result is consistent with immunity to Hepatitis B Virus when used in the setting of routine screening. Current interpretive data was last revised on 20. Testing performed by: [facility], [address] [place] [address]., [address] Blood 12/26/2024 8:06 AM REAL ESTATE MANAGEMENT SPECIALIST 12/26/2024 1:21 PM REAL ESTATE MANAGEMENT SPECIALIST Mickey Bowling MD LAB MICROBIOLOGY - GENERAL ORDERABLES Final Result ARMOND [address] Department [place] [address] * (ABNORMAL) Lipid panel (12/26/2024 8:06 AM REAL ESTATE MANAGEMENT SPECIALIST) Cholesterol 223(H) 30 - 199 mg/dL Comment: Interpretive Data Ages < or = 19 years Acceptable: <170 mg/dL Borderline high: 170-199 mg/dL High: >or= 200 mg/dL Ages > or = 20 years Desirable: <200 mg/dL Borderline high: 200-239 mg/dL High: >or= 240 mg/dL Literature References: 1. Expert Panel on Integrated Guidelines for Cardiovascular Health and Risk Reduction in Children and Adolescents. Pediatrics 2011;128:S213 2. NCEP Expert Panel. Circulation 2004;110:227 Current Interpretive Data was last revised on 2018. Testing performed by: [facility], [address] [place] [address]., [address] Triglycerides 163(H) <=149 mg/dL ARMOND DAVIDSON Comment: Interpretive Data Ages < or = 9 years Acceptable: <75 mg/dL Borderline high: 75-99 mg/dL High: >or= 100 mg/dL Ages 10 to 20 years Acceptable: <90 mg/dL Borderline high: 90-129 mg/dL High: >or= 130 mg/dL Ages > or = 20 years Desirable: <150 mg/dL Borderline high: 150-199 mg/dL High: 200-499 mg/dL Very high: >or= 499 mg/dL Literature References: 1. Expert Panel on Integrated Guidelines for Cardiovascular Health and Risk Reduction in Children and Adolescents. Pediatrics 2011;128:S213 2. NCEP Expert Panel. Circulation 2004;110:227 Current Interpretive Data was last revised on 2018. Testing performed by: [facility], [address] [place] [address]., [address] HDL 48 >=40 mg/dL [facility] Comment: Interpretive Data Ages < or = 19 years Acceptable: >45 mg/dL Borderline low: 40-45 mg/dL Low: <40 mg/dL Ages > or = 20 years Desirable: >or= 60 mg/dL Low: <40 mg/dL Literature References: 1. Expert Panel on Integrated Guidelines for Cardiovascular Health and Risk Reduction in Children and Adolescents. Pediatrics 2011;128:S213 2. NCEP Expert Panel. Circulation 2004;110:227 Current Interpretive Data was last revised on 2018. Testing performed by: [facility], [address] [place] [address]., [address] LDL, calculated 146(H) <=129 mg/dL [facility] Comment: Interpretive Data Ages < or = 19 years Acceptable: <110 mg/dL Borderline high: 110-129 mg/dL High: >or= 130 mg/dL Ages > or = 20 years Optimal: <100 mg/dL Near optimal: 100-129 mg/dL Borderline high: 130-159 mg/dL High: >160 mg/dL Calculated using the Diego LDL-C estimating equation. This equation was implemented on 2024. Prior to this date LDL-C was estimated using the Friedewald equation. Literature References: 1. Expert Panel on Integrated Guidelines for Cardiovascular Health and Risk Reduction in Children and Adolescents. Pediatrics 2011;128:S213 2. NCEP Expert Panel. Circulation 2004;110:227 3. Diego Casas al. DRAGAN Cardiol. 2020 March 29;5(5):540-548. doi: 10.1001/jamacardio.2020.0013 Current Interpretive Data was last revised on 2024. Testing performed by: [address] [address] Non-HDL Cholesterol 175 mg/dL CERNER Comment: Interpretive Data Ages < or = 19 years Acceptable: <120 mg/dL Borderline high: 120-144 mg/dL High: >145 mg/dL Ages > or = 20 years When triglycerides are >200 mg/dL, Non-HDL cholesterol is a secondary target of therapy with treatment goals that are 30 mg/dL greater than the LDL cholesterol target. Literature References: 1. Expert Panel on Integrated Guidelines for Cardiovascular Health and Risk Reduction in Children and Adolescents. Pediatrics 2011;128:S213 2. NCEP Expert Panel. Circulation 2004;110:227 Current Interpretive Data was last revised on 2018. Testing performed by: [address], [address] Chol/HDL ratio 5 CERNER Comment:Testing performed by : [address] [address] Blood 12/26/2024 8:06 AM REAL ESTATE MANAGEMENT SPECIALIST 12/26/2024 1:21 PM REAL ESTATE MANAGEMENT SPECIALIST Mickey Bowling MD LAB BLOOD ORDERABLES Final Result [address] Department [place] [address] * Comprehensive metabolic panel (12/26/2024 8:06 AM REAL ESTATE MANAGEMENT SPECIALIST) Sodium 140 135 - 145 mmol/L Comment:Testing performed by : [address] [address] Potassium, pl 4.6 3.3 - 4.9 mmol/L CERNER Comment:Testing performed by : [address] [address] Chloride 105 97 - 110 mmol/L CERNER Comment:Testing performed by : [address] [address] CO2 24 22 - 32 mmol/L CERNER CH Comment:Testing performed by : [address] [address] Anion gap 11 2 - 15 mmol/L CERNER Comment:Testing performed by : [address] [address] BUN 20 6 - 25 mg/dL CERNER CH Comment:Testing performed by : [address] [address] Creatinine 1.08 0.80 - 1.30 mg/dL CERNER CH Comment:Testing performed by : [address], [address] Glucose 118 70 - 199 mg/dL CERNER CH Comment: Interpretive Data Fasting glucose >/= 126 mg/dl is diagnostic for diabetes. Fasting is defined as no caloric intake for at least 8 hours. Fasting glucose between 100 mg/dl to 125 mg/dl is diagnostic of prediabetes. In a patient with classic symptoms of hyperglycemia or hyperglycemic crisis, a random glucose >/= 200 mg/dl is diagnostic for diabetes. In the absence of unequivocal hyperglycemia, results should be confirmed by repeat testing. The classification and Diagnosis of Diabetes Diabetes Care 2021; 46: S19-S40. Current interpretive data was last revised 2022. Testing performed by: [address], [address] Calcium 9.9 8.5 - 10.3 mg/dL CERNER CH Comment:Testing performed by : [address], [address] Bilirubin, total 0.6 0.1 - 1.2 mg/dL CERNER CH Comment:Testing performed by : [address], [address] Protein, pl 6.5 6.5 - 8.5 g/dL CERNER CH Comment:Testing performed by : [address], [address] Albumin 4.5 3.5 - 5.0 g/dL CERNER CH Comment:Testing performed by : [address], [address] Alk phos 87 40 - 130 Units/L CERNER CH Comment:Testing performed by : [address], [address] ALT 26 7 - 55 Units/L CERNER CH Comment:Testing performed by : [address], [address] AST 26 10 - 50 Units/L CERNER CH Comment:Testing performed by : [address], [place]., [address] Blood 12/26/2024 8:06 AM REAL ESTATE MANAGEMENT SPECIALIST 12/26/2024 1:21 PM REAL ESTATE MANAGEMENT SPECIALIST us Mickey Ernesto Bowling MD LAB BLOOD ORDERABLES Final Result Performing Organization Address City/State/[facility] Co de Phone Number ARMOND [address] [facility] Department [place] [address] * US Axillary Left Non-Breast (10/09/2024 4:08 PM REAL ESTATE MANAGEMENT SPECIALIST) Anatomical Region Laterality Modality Upper Extremities Left Ultrasound 10/13/2024 8:48 AM REAL ESTATE MANAGEMENT SPECIALIST Narrative 10/13/2024 8:57 AM REAL ESTATE MANAGEMENT SPECIALIST EXAM DESCRIPTION: US AXILLARY NON-BREAST LEFT REASON FOR STUDY: ENLARGE LN Enlarged Lymph Node in left axilla x 4 weeks Notice a lump in the left axilla 4 weeks ago after being bit by some bugs while cleaning his camper Pt also had his Covid and Flu vaccine 1-2 weeks ago after noticing the lump TECHNIQUE: A Dynamic assessment was performed of the area of palpable abnormality in the left axilla by the ophthalmic assistant, with selected grayscale and color Doppler images acquired and recorded in PACS. COMPARISON: No comparison. FINDINGS: SKIN AND SUBCUTANEOUS TISSUES: Directed ultrasound demonstrates a cluster of abnormal lymph nodes in the left axilla. The largest measures 2.8 x 1.3 x 2.6 cm with multiple lobulations. The lymph node at the site of palpable tenderness measures 1.6 x 1.0 x 2.2 cm and demonstrates areas of internal necrosis. There is a additional adjacent lymph node measuring 1.6 x 1.2 x 1.3 cm also with significant internal necrosis. DEEP SOFT TISSUES/MUSCLES: No masses. No fluid collections. No edema. OTHER: No other significant finding. IMPRESSION: Cluster of abnormally enlarged and abnormally appearing lymph nodes in the left axilla including areas of internal necrosis. Further evaluation with ultrasound directed core and or fine-needle aspiration is recommended based upon clinical assessment. THIS IS AN ELECTRONICALLY VERIFIED FINAL REPORT 10/13/2024 8:57 AM - Electronically signed by Lucman GALO Report ID: [id number] Reading Location: [id number] Procedure Note Tori Schultz MD - 10/13/2024 EXAM DESCRIPTION: US AXILLARY NON-BREAST LEFT REASON FOR STUDY: ENLARGE LN Enlarged Lymph Node in left axilla x 4 weeks Notice a lump in the left axilla 4 weeks ago after being bit by some bugs while cleaning his camperPt also had his Covid and Flu vaccine 1-2 weeks ago after noticing the lump TECHNIQUE: A Dynamic assessment was performed of the area of palpable abnormality in the left axilla by the ophthalmic assistant, with selectedgrayscale and color Doppler images acquired and recorded in PACS. COMPARISON: No comparison. FINDINGS: SKIN AND SUBCUTANEOUS TISSUES: Directed ultrasound demonstrates acluster of abnormal lymph nodes in the left axilla. The largest measures 2.8 x 1.3 x2.6 cm with multiple lobulations. The lymph node at the site of palpable tenderness measures 1.6 x 1.0 x 2.2 cm and demonstrates areas of internal necrosis. There is a additional adjacent lymph node measuring 1.6 x 1.2 x1.3 cm also with significant internal necrosis. DEEP SOFT TISSUES/MUSCLES: No masses. No fluid collections. No edema. OTHER: No other significant finding. IMPRESSION: Cluster of abnormally enlarged and abnormally appearing lymph nodes inthe left axilla including areas of internal necrosis. Further evaluation with ultrasound directed core and or fine-needle aspiration is recommendedbased upon clinical assessment. THIS IS AN ELECTRONICALLY VERIFIED FINAL REPORT 10/13/2024 8:57 AM - Electronically signed by Sony GALO: CLOVER Report ID: [id number] Reading Location: [id number] us Mickey Bowling MD IMG US PROCEDURES Final Re sult * Colonoscopy (06/16/2024 9:03 AM CDT) Anatomical Region Laterality Modality Other Narrative Procedure Note Mikie Coffey MD - 06/16/2024 9:[address] [facility] Patient Name: Porfirio Haywood Procedure Date: 06/16/2024 9:03 AM Date of : 1960 Admit Type: Outpatient Age: 63 Gender: Male Attending MD: Mikie Coffey M.D. Room: [facility] ENDOSCOPY ROOM 1 Note Status: Finalized Patient Profile: This is a 63 year old male. Patient had recentepisode of lower abdominal pain and CT showed inflammatory changes in the left side of the colon andthickening in the hepatic flexure area. He has aunt and uncle both had colon cancer Procedure: Colonoscopy Indications: Lower abdominal pain, Abnormal CT of the GI tract Referring MD: Mickey Bowling M.D. Providers: Mikie Coffey M.D. Impression: - The appendiceal orifice is normal. - Two 3 to 5 mm polyps in the cecum, removed with a jumbo cold forceps. Resected and retrieved. - Two 3 to 4 mm polyps in the transverse colon andin the ascending colon, removed with a jumbo cold forceps. Resected and retrieved. - One 9 mm polyp in the proximal descending colon, removed with a cold snare. Resected and retrieved. Clip (MR conditional) was placed. 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 - Three 2 to 3 mm polyps in the sigmoid colon andin the descending colon, removed with a jumbo cold forceps. Resected and retrieved. - Internal hemorrhoids. Recommendation: - Await pathology results. - Repeat colonoscopy in 2 years for surveillance. - Continue present medications. Medicines: Monitored Anesthesia Care Complications: No immediate complications. Estimated Blood Loss: Estimated blood loss: none. Procedure: Pre-Anesthesia Assessment: - Prior to the procedure, a History and Physicalwas performed, and patient medications and allergieswere reviewed. The patient's tolerance of previous anesthesia was also reviewed. The risks andbenefits of the procedure and the sedation options and risks were discussed with the patient. All questions were answered, and informed consent was obtained. Prior Anticoagulants: The patient has taken noanticoagulant or antiplatelet agents. ASA Grade Assessment: Per anesthesia note and evaluation. After reviewing the risks and benefits, the patient was deemed in satisfactory condition to undergo the procedure. - Prior to the procedure, a History and Physicalwas performed, and patient medications and allergieswere reviewed. The patient's tolerance of previous anesthesia was also reviewed. The risks andbenefits of the procedure and the sedation options and risks were discussed with the patient. All questions were answered, and informed consent was obtained. Prior Anticoagulants: The patient has taken noanticoagulant or antiplatelet agents. ASA Grade Assessment: Per anesthesia note and evaluation. After reviewing the risks and benefits, the patient was deemed in satisfactory condition to undergo the procedure. The benefits, risks and alternatives of theprocedure and sedation were discussed and informed consentwas obtained. All questions were answered. Please referto the signed informed consent document in the medical record. The scope was passed under direct vision.The Pediatric Colonoscope PCF-H190L [id number] was introduced through the anus and advanced to the the cecum, identified by appendiceal orifice andileocecal valve. The colonoscopy was performed without difficulty. The patient tolerated the procedurewell. The quality of the bowel preparation was good. The bowel preparation used was Miralax via split dose instruction. Bowel prep was administered using asplit dose. Findings: The perianal and digital rectal examinations were normal. The appendiceal orifice appeared normal. Two semi-sessile polyps were found in the cecum. The polyps were 3 to5 mm in size. These polyps were removed with a jumbo cold forceps. Resection and retrieval were complete. Two sessile polyps were found in the transverse colon and ascending colon. The polyps were 3 to 4 mm in size. These polyps were removedwith a jumbo cold forceps. Resection and retrieval were complete. A 9 mm polyp was found in the proximal descending colon. The polypwas sessile. The polyp was removed with a cold snare. Resection and retrieval were complete. To prevent bleeding after the polypectomy,one hemostatic clip was successfully placed (MR conditional). 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 There was no bleeding at the end ofthe procedure. Three sessile polyps were found in the sigmoid colon and descending colon. The polyps were 2 to 3 mm in size. These polyps were removedwith a jumbo cold forceps. Resection and retrieval were complete. Internal hemorrhoids were found during retroflexion. The hemorrhoids were medium-sized. No inflammatory changes noted in the colon. Endoscopically no diverticulitis or diverticular changes noted. Nomass lesions noted in the colon. Electronically signed by Mikie Coffey M.D. Mikie Coffey M.D. 06/16/2024 9:08:15 AM Number of Addenda: 0 Note Initiated On: 06/16/2024 9:03 AM Procedure Code(s): --- Professional --- 69571, Colonoscopy, flexible; with removal of tumor(s), polyp(s), or other lesion(s) by snare technique 09681, 59, Colonoscopy, flexible; with biopsy, single or multiple --- Technical --- 99981, Colonoscopy, flexible; with removal of tumor(s), polyp(s), or other lesion(s) by snare technique 39224, 59, Colonoscopy, flexible; with biopsy, single or multiple Diagnosis Code(s): --- Professional --- K64.8, Other hemorrhoids D12.0, Benign neoplasm of cecum D12.3, Benign neoplasm of transverse colon (hepatic flexure orsplenic flexure) D12.5, Benign neoplasm of sigmoid colon D12.2, Benign neoplasm of ascending colon R10.30, Lower abdominal pain, unspecified R93.3, Abnormal findings on diagnostic imaging of other parts of digestive tract --- Technical --- K64.8, Other hemorrhoids D12.0, Benign neoplasm of cecum D12.3, Benign neoplasm of transverse colon (hepatic flexure orsplenic flexure) D12.5, Benign neoplasm of sigmoid colon D12.2, Benign neoplasm of ascending colon R10.30, Lower abdominal pain, unspecified R93.3, Abnormal findings on diagnostic imaging of other parts of digestive tract CPT copyright 2020 [employer]. All rights reserved. The codes documented in this report are preliminary and upon insurance coder reviewmay be revised to meet current compliance requirements. Recognized by the [place] [employer] for promoting quality in endoscopy Mikie Coffey MD ENDOSCOPY PROCEDURES Final Result * PSA screen (12/15/2023 9:28 AM REAL ESTATE MANAGEMENT SPECIALIST) PSA-Total 0.90 <=5.40 ng/mL ARMOND DAVIDSON Comment: Interpretive Data AGE SEX REFERENCE INTERVAL 0 minutes-150 years Female None 0 minutes-49 years Male None 50-59 years Male 0-3.90 60-69 years Male 0-5.40 70-79 years Male 0-6.20 80-150 years Male 0-6.20 The Melissa PSA Total assay procedure was used. Results from different manufacturers or methods may not be comparable. Serial testing should be performed using the same method. Current interpretive data last revised 22. Blood 12/15/2023 9:28 AM REAL ESTATE MANAGEMENT SPECIALIST 12/15/2023 2:25 PM REAL ESTATE MANAGEMENT SPECIALIST Mickey Bowling MD LAB BLOOD ORDERABLES Final Result ARMOND DAVIDSON [address] [place] [address] * Hepatitis panel, acute (02/17/2021 8:14 AM CDT) Hep A IgM Nonreactive Nonreactive [facility] Comment: Interpretive Data: If Hep A IgM Ab is reported as Equivocal, a new sample should be drawn in two weeks for testing. Current interpretive data was last revised on 20. Hep B core IgM Nonreactive Nonreactive [facility] Comment: Interpretive Data If HepB Core IgM Ab is reported as Equivocal, a new sample should be drawn in two weeks for testing. Current interpretive data was last revised on 20. Hep C Ab Nonreactive Nonreactive [facility] Comment: Interpretive Data Nonreactive: Antibodies to HCV not detected. Does NOT exclude the possibility of recent exposure to HCV. Equivocal: Equivocal for HCV antibodies. Supplemental molecular testing will be automatically performed to determine infection status in accordance with current CDC screening recommendations. Reactive: Positive for HCV antibodies. This may represent current or past HCV infection. Supplemental molecular testing will be automatically performed to determine current infection status in accordance with current CDC screening recommendations. Interpretive data was last revised on 2020. HepBsAg Nonreactive Nonreactive [facility] Blood specimen (specimen) 02/17/2021 8:14 AM CDT 02/17/2021 1:05 PM CDT Mickey Bowling MD LAB MICROBIOLOGY - GENERAL ORDERABLES Final Result [facility] [id number] Department [place] [address] from Last 3 Months or Most Recently Relevant to Health Maintenance Insurance [employer] SIG [id number] [facility] Advance Directives For more information, please contact: [phone] * Full Code (Latest Code Status on File) Date Activated Date Inactivated Comments 06/16/2024 7:44 AM 06/16/2024 1:50 PM * Full Code Date Activated Date Inactivated Comments 06/16/2024 7:44 AM 06/16/2024 7:44 AM * Full Code Date Activated Date Inactivated Comments 02/13/2020 8:38 AM 02/13/2020 2:38 PM * Full Code Date Activated Date Inactivated Comments 02/13/2020 8:37 AM 02/13/2020 8:38 AM Care Teams Chief Compressor Station Engineer Relationship Specialty Start Date End Date Mickey Bowling MD [address] [place] [address] PCP - General 08/10/11 Lily King DO [address] [place] [id number] Consulting Physician Otolaryngology 07/20/19
--- OUTSIDE RECORDS SUMMARY | 2025-01-05 19:38 | XMS_ITS | Referral Summary ---
Author Organization [facility] [address] Address [address] [place] [address] Phone Care Team Providers Care Hand Polisher Name Role Phone Mickey Bowling MD Primary Care Provider [phone] Lily King DO Unavailable [phone] Encounters Date Type Department Care Team Description 01/04/2025 Telephone [facility] [address] [place] [phone] Mickey Bowling MD 01/01/2025 4:15 PM PERINATAL SPECIALIST Ancillary Procedure [facility] [address] [place] [phone] Chronic bilateral low back pain, unspecified whether sciatica present 01/01/2025 3:15 PM PERINATAL SPECIALIST Office Visit [facility] [address] [place] [phone] Mickey Bowling MD Chronic bilateral low back pain, unspecified whether sciatica present (Primary Dx); Essential hypertension; Prostate cancer screening; Enlarged lymph nodes in armpit; Mixed hyperlipidemia 12/26/2024 8:50 AM PERINATAL SPECIALIST Lab [facility] [address] [place] [phone] Need for hepatitis B screening test; Mixed hyperlipidemia 12/26/2024 8:15 AM PERINATAL SPECIALIST Ancillary Procedure [facility] [address] [place] [address] scan 2024 Telephone [facility] [address] [place] [address] Mickey Bowling MD 10/13/2024 Telephone [facility] [address] [place] [address] Gail Chen RN 10/09/2024 3:45 PM PERINATAL SPECIALIST Ancillary Procedure [facility] [address] [place] [address] Enlarged lymph node 10/09/2024 3:15 PM PERINATAL SPECIALIST Office Visit [facility] [address] [place] [address] Mickey Bowling MD Enlarged lymph node (Primary Dx); Enlarged lymph nodes in armpit from Last 3 Months Allergies Active Allergy Reactions Criticality Noted Date Comments Apple Other (See comments) Low . Banana Swelling Medium 07/07/2018 Throat swells Dickson Peanut Other (See comments) Low . 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, right 10/31/2018 Overview (10/31/2018): Added automatically from request for surgery [id number] Shoulder pain 01/07/2015 Overview (03/05/2017): Shoulder pain Gastroesophageal reflux disease without esophagi tis 01/07/2015 Overview (03/05/2017): Acid reflux Essential hypertension 04/14/2014 Overview (03/04/2017): Hypertension Assessment & Plan (01/01/2025 6:27 PM PERINATAL SPECIALIST): GOAL BP IS 130/80 OR LESS LOW NA DIET Obstructive sleep apnea syndrome 04/14/2014 Overview (03/04/2017): CRISTÓBAL (obstructive sleep apnea) Mixed hyperlipidemia 04/14/2014 Overview (03/04/2017): Hyperlipidemia Assessment & Plan (01/01/2025 6:27 PM PERINATAL SPECIALIST): GOAL LDL IS UNDER 100 LFT ARE NL Allergic conjunctivitis 04/14/2014 Overview (03/04/2017): Allergic conjunctivitis Immunizations Name Administration Dates Next Due Influenza, Quadrivalent, Spl it, Intramuscular 01/08/2019,11/06/2016 Influenza, Quadrivalent, Spl it, Preservative Free, Intramuscular 12/24/2022,09/04/2021,11/03/2020 Influenza, Split 11/15/2013,10/12/2012 Influenza, Trivalent, IM (MDV) 12/20/2014,2012 Influenza, Trivalent, Preser vative Free, Intramuscular 09/20/2024 Influenza, Unspecified 09/20/2023,11/03/2020,08/2019 Moderna SARS-CoV-2 Monovalen t Vaccination (12+ YRS) 01/26/2022 Tdap 09/19/2009 ZOSTER Recombinant 03/30/2019,01/08/2019 Social History Tobacco Use Types Packs/Day Years [...] on file Legal Sex Male 2:03 PM PERINATAL SPECIALIST Gender Identity Not on file Sexual Orientation Not on file Last Filed Vital Signs Vital Sign Reading Time Taken Comments Blood Pressure 124/72 01/01/2025 3:03 PM PERINATAL SPECIALIST Pulse 90 01/01/2025 3:03 PM PERINATAL SPECIALIST Temperature 36.7 C (98 F) 01/01/2025 3:03 PM PERINATAL SPECIALIST Respiratory Rate 16 01/01/2025 3:03 PM PERINATAL SPECIALIST Oxygen Saturation 96% 01/01/2025 3:03 PM PERINATAL SPECIALIST Inhaled Oxygen Concentration - - Weight 93.4 kg (206 lb) 01/01/2025 3:03 PM PERINATAL SPECIALIST Height 177.8 cm (5' 10 ) 01/01/2025 3:03 PM PERINATAL SPECIALIST Body Mass Index 29.56 01/01/2025 3:03 PM PERINATAL SPECIALIST Plan of Treatment Not on file Procedures Procedure Name Priority Date/Time Associated Diagnosis Comments XR SPINE LUMBAR 2 OR 3 VIEWS Schedule Routine, Read Routine (OP Routine) 01/01/2025 4:01 PM PERINATAL SPECIALIST Chronic bilateral low back pain, unspecified whether sciatica present XR HIP RIGHT 2 OR 3 VIEWS Schedule Routine, Read Routine (OP Routine) 01/01/2025 4:01 PM PERINATAL SPECIALIST Chronic bilateral low back pain, unspecified whether sciatica present US RUQ Schedule Routine, Read Routine (OP Routine) 12/26/2024 8:35 AM PERINATAL SPECIALIST Abnormal CT scan EGFR Routine 12/26/2024 8:06 AM PERINATAL SPECIALIST Mixed hyperlipidemia DIFFERENTIAL AUTO Routine 12/26/2024 8:0 6 AM PERINATAL SPECIALIST Mixed hyperlipidemia LIPID PANEL Routine 12/26/2024 8:06 AM PERINATAL SPECIALIST Mixed hyperlipidemia COMPREHENSIVE METABOLIC PANEL Routine 12/26/2024 8:06 AM PERINATAL SPECIALIST Mixed hyperlipidemia CBC WITH AUTO DIFFERENTIAL Routine 12/26/2024 8:06 AM PERINATAL SPECIALIST Mixed hyperlipidemia HEPATITIS B SURFACE ANTIBODY (IMMUNE STATUS) Routine 12/26/2024 8:06 AM PERINATAL SPECIALIST Need for hepatitis B screening test US AXILLARY NON-BREAST LEFT Schedule Routine, Read Routine (OP Routine) 10/09/2024 4:08 PM PERINATAL SPECIALIST Enlarged lymph node COLONOSCOPY 06/16/2024 9:03 AM CDT PSA SCREEN Routine 12/15/2023 9:28 AM PERINATAL SPECIALIST Routine physical examination Prostate cancer screening HEPATITIS PANEL, ACUTE Routine 02/17/2021 8:14 AM CDT Elevated LFTs from Last 3 Months or Most Recently Relevant to Health Maintenance Results * XR Hip Right 2 or 3 Views (01/01/2025 4:01 PM PERINATAL SPECIALIST) Anatomical Region Laterality Modality Lower Extremities, Hip, Pelvis Right C omputed Radiography 01/01/2025 9:23 PM PERINATAL SPECIALIST Narrative 01/01/2025 9:24 PM PERINATAL SPECIALIST EXAM DESCRIPTION: XR HIP RIGHT 2 [...] Geo Rosario M.D. MF: CL[place] Report ID: [id number] Reading Location: [id number] Procedure Note Geo Rosario MD - 01/01/2025 [...] Geo Rosario M.D. MF: [place] Report ID: [id number] Reading Location: [id number] us Mickey Ernesto Bowling MD IMG XR PROCEDURES Final Re sult * XR Spine Lumbar 2 or 3 Views (01/01/2025 4:01 PM PERINATAL SPECIALIST) Anatomical Region Laterality Modality Spine N/A Computed Radiogr aphy 01/01/2025 9:23 PM PERINATAL SPECIALIST Narrative 01/01/2025 9:24 PM PERINATAL SPECIALIST EXAM DESCRIPTION: XR HIP RIGHT 2 [...] Geo Rosario M.D. MF: [place] Report ID: [id number] Reading Location: [id number] Procedure Note Geo Rosario MD - 01/01/2025 [...] Geo Rosario M.D. MF: [place] Report ID: [id number] Reading Location: [place] [address] us Mickey Ernesto Bowling MD IMG XR PROCEDURES Final Re sult * US RUQ (12/26/2024 8:35 AM PERINATAL SPECIALIST) Anatomical Region Laterality Modality Abdomen N/A Ultrasound 12/27/2024 9:35 AM PERINATAL SPECIALIST Narrative 12/27/2024 9:38 AM PERINATAL SPECIALIST EXAM DESCRIPTION: US RUQ REASON FOR [...] thickening or pericholecystic fluid. No positive sonographic Creola sign reported. BILIARY: There is no intrahepatic [...] Vito Sarah M.D. RB: EMILIANO Report ID: [id number] Reading Location: [id number] Procedure Note Vito Sarah MD - 12/27/2024 [...] wall thickening or pericholecystic fluid. No positivesonographic Creola sign reported. BILIARY: There is no intrahepatic [...] Vito Sarah M.D. RB: EMILIANO Report ID: [id number] Reading Location: [id number] us Mickeytheron Bowling MD IMG US PROCEDURES Final Re sult * eGFR (12/26/2024 8:06 AM PERINATAL SPECIALIST) eGFR 77 >=60 mL/min/1. 73 m2 [...] was last reviewed 2021. Testing performed by: [address] [address] Blood 12/26/2024 8:06 AM PERINATAL SPECIALIST 12/26/2024 1:44 PM PERINATAL SPECIALIST Mickey Bowling MD LAB BLOOD ORDERABLES Final Result [address] Department [place] [address] * Differential, auto (12/26/2024 8:06 AM PERINATAL SPECIALIST) Pathologist [facility] Neutrophil abs 3.2 1.5 - 6.5 K/cumm Comment:Testing performed by : [address] [address] Imm gran abs 0.0 0.0 - 0.1 K/cumm [facility] Comment:Testing performed by : [address] [address] Lymphocyte abs 1.6 0.8 - 3.3 K/cumm [place] Comment:Testing performed by : [address] [address] Monocyte abs 0.8 0.2 - 0.8 K/cumm CERNER CH Comment:Testing performed by : [facility], [address] [place] [address]., [address] Eosinophil abs 0.1 0.0 - 0.5 K/cumm CERNER CH Comment:Testing performed by : [facility], [address] [place] [address]., [address] Basophil abs 0.1 0.0 - 0.1 K/cumm CERNER CH Comment:Testing performed by : [address] [address] Neutrophil pct 55.6 % [facility]ER CH Comment: Interpretive Data Percent cell count reference ranges are not reported, since discordance with absolute values may lead to misinterpretation of CBC data. Current Interpretive Data was last revised on 2018. Testing performed by: [address] [address] Imm gran pct 0.7 % [facility] CH Comment: Interpretive Data Percent cell count reference ranges are not reported, since discordance with absolute values may lead to misinterpretation of CBC data. Current Interpretive Data was last revised on 2018. Testing performed by: [address] [address] Lymphocyte pct 27.0 % C[facility]ER CH Comment: Interpretive Data Percent cell count reference ranges are not reported, since discordance with absolute values may lead to misinterpretation of CBC data. Current Interpretive Data was last revised on 2018. Testing performed by: [address] [address] Monocyte pct 13.4 % C[facility]ER CH Comment: Interpretive Data Percent cell count reference ranges are not reported, since discordance with absolute values may lead to misinterpretation of CBC data. Current Interpretive Data was last revised on 2018. Testing performed by: [address] [address] Eosinophil pct 1.9 % C[facility]ER CH Comment: Interpretive Data Percent cell count reference ranges are not reported, since discordance with absolute values may lead to misinterpretation of CBC data. Current Interpretive Data was last revised on 2018. Testing performed by: [address] [address] Basophil pct 1.4 % CERNER CH Comment: Interpretive Data Percent cell count reference ranges are not reported, since discordance with absolute values may lead to misinterpretation of CBC data. Current Interpretive Data was last revised on 2018. Testing performed by: [address] [address] Blood 12/26/2024 8:06 AM PERINATAL SPECIALIST 12/26/2024 1:21 PM PERINATAL SPECIALIST Mickey Bowling MD LAB BLOOD ORDERABLES Final Result [facility] [address] Department [place] [address] * CBC with auto differential (12/26/2024 8:06 AM PERINATAL SPECIALIST) WBC 5.7 3.8 - 9.9 K/cumm Comment:Testing performed by : [address], [address] Hgb 14.5 13.0 - 17.5 g/dL CERNER Comment:Testing performed by : [address], [address] Hct 43.7 38.9 - 50.3 % CERNER Comment:Testing performed by : [address], [address] Plt 238 150 - 400 K/cumm CERNER CH Comment:Testing performed by : [address], [address] MPV 10.9 9.1 - 12.3 fL C[facility]ER CH Comment:Testing performed by : [address], [address] RBC 4.77 4.30 - 5.80 M/cumm CERNER CH Comment:Testing performed by : [address], [address] MCV 91.6 81.3 - 96.4 fL C[facility]ER CH Comment:Testing performed by : [address], [address] MCH 30.4 27.1 - 33.3 pg CERNER CH Comment:Testing performed by : [address], [address] MCHC 33.2 32.3 - 35.7 g/dL [facility] Comment:Testing performed by : [address], [address] RDW CV 12.6 11.1 - 14.9 % [facility] Comment:Testing performed by : [address], [address] RDW SD 42.0 35.7 - 48.1 fL [place] Comment:Testing performed by : [address], [address] NRBC abs 0.00 0.00 - 0.01 K/cumm [place] Comment:Testing performed by : [address], [address] Blood 12/26/2024 8:06 AM PERINATAL SPECIALIST 12/26/2024 1:21 PM PERINATAL SPECIALIST Mickey Bowling MD LAB BLOOD ORDERABLES Final Result Performing Organization Address [facility] de Phone Number [address] Department [place] [address] * Hepatitis B surface antibody (immune status) Blood (12/26/2024 8:06 AM PERINATAL SPECIALIST) HBsAb (immune status) Nonreactive Comment: Interpretive [...] last revised on 20. Testing performed by: [address], [address] Blood 12/26/2024 8:06 AM PERINATAL SPECIALIST 12/26/2024 1:21 PM PERINATAL SPECIALIST Mickey Bowling MD LAB MICROBIOLOGY - GENERAL ORDERABLES Final Result Performing Organization Address [facility]/State/ZIP Co de Phone Number [facility] [phone] [place] [address] Department [place] [address] * (ABNORMAL) Lipid panel (12/26/2024 8:06 AM PERINATAL SPECIALIST) Cholesterol 223(H) 30 - 199 mg/dL [...] last revised on 2018. Testing performed by: [address] [address] Triglycerides 163(H) <=149 mg/dL [facility] DAVIDSON Comment: [...] last revised on 2018. Testing performed by: [address] [address] HDL 48 >=40 mg/dL [facility] Comment: Interpretive Data Ages < or = [...] last revised on 2018. Testing performed by: [address] [address] LDL, calculated 146(H) <=129 mg/dL [facility] Comment: Interpretive Data Ages < or = [...] NCEP Expert Panel. Circulation 2004;110:227 3. Diego Casiano et al. DRAGAN Cardiol. 2020 March 29;5(5):540-548. doi: 10.1001/jamacardio.2020.0013 Current Interpretive Data was last revised on 2024. Testing performed by: [address] [address] Non-HDL Cholesterol 175 mg/dL [facility] Comment: Interpretive Data Ages < or [...] last revised on 2018. Testing performed by: [address] [address] Chol/HDL ratio 5 [facility] Comment:Testing performed by : [address] [address] Blood 12/26/2024 8:06 AM PERINATAL SPECIALIST 12/26/2024 1:21 PM PERINATAL SPECIALIST Mickey Bowling MD LAB BLOOD ORDERABLES Final Result [address] Department [place] [address] * Comprehensive metabolic panel (12/26/2024 8:06 AM PERINATAL SPECIALIST) Sodium 140 135 - 145 mmol/L Comment:Testing performed by : [facility], [address] [place] [address]., [address] Potassium, pl 4.6 3.3 - 4.9 mmol/L [facility] Comment:Testing performed by : [facility], [address] [place] [address]., [address] Chloride 105 97 - 110 mmol/L [facility] Comment:Testing performed by : [address] [address] CO2 24 22 - 32 mmol/L [facility] Comment:Testing performed by : [address] [address] Anion gap 11 2 - 15 mmol/L [facility] Comment:Testing performed by : [address] [address] BUN 20 6 - 25 mg/dL [facility] Comment:Testing performed by : [address] [address] Creatinine 1.08 0.80 - 1.30 mg/dL [facility] Comment:Testing performed by : [address] [address] Glucose 118 70 - 199 mg/dL [facility] Comment: Interpretive Data Fasting glucose >/= 126 [...] classification and Diagnosis of Diabetes Diabetes Care 2022; 46: S19-S40. Current interpretive data was last revised 2022. Testing performed by: [facility], [address] [place] [address]., [address] Calcium 9.9 8.5 - 10.3 mg/dL CERNER CH Comment:Testing performed by : [facility], [address] [place] [address]., [address] Bilirubin, total 0.6 0.1 - 1.2 mg/dL CERNER CH Comment:Testing performed by : [address] [address] Protein, pl 6.5 6.5 - 8.5 g/dL C[facility] CH Comment:Testing performed by : [address], [address] Albumin 4.5 3.5 - 5.0 g/dL C[facility] CH Comment:Testing performed by : [address], [address] Alk phos 87 40 - 130 Units/L CERNER CH Comment:Testing performed by : [address], [address] ALT 26 7 - 55 Units/L C[facility] CH Comment:Testing performed by : [address], [address] AST 26 10 - 50 Units/L C[facility] CH Comment:Testing performed by : [address] [address] Blood 12/26/2024 8:06 AM PERINATAL SPECIALIST 12/26/2024 1:21 PM PERINATAL SPECIALIST us Mickey Bowling MD LAB BLOOD ORDERABLES Final Result [address] Department [place] [address] * US Axillary Left Non-Breast (10/09/2024 4:08 PM PERINATAL SPECIALIST) Anatomical Region Laterality Modality Upper Extremities Left Ultrasound 10/13/2024 8:48 AM PERINATAL SPECIALIST Narrative 10/13/2024 8:57 AM PERINATAL SPECIALIST EXAM DESCRIPTION: US AXILLARY NON-BREAST LEFT [...] abnormality in the left axilla by the facilities and grounds director, with selected grayscale and color Doppler images [...] 8:57 AM - Electronically signed by Sony Schultz M.D. LC: CLOVER Report ID: [id number] Reading Location: [place] [address] Procedure Note Tori Schultz MD - 10/13/2024 [...] abnormality in the left axilla by the facilities and grounds director, with selectedgrayscale and color Doppler images acquired [...] 8:57 AM - Electronically signed by Sony Schultz M.D. LC: CLOVER Report ID: [id number] Reading Location: [id number] us Mickey Bowling MD IMG US PROCEDURES Final Re sult * Colonoscopy (06/16/2024 9:03 AM CDT) Anatomical Region Laterality Modality Other Narrative Procedure Note Mikie Coffey MD - 06/16/2024 9:03 AM CDT [facility] Patient Name: Porfirio Haywood Procedure Date: 06/16/2024 9:03 AM Date of : 1960 Admit Type: Outpatient Age: 63 Gender: Male Attending MD: Selena SingletaryD. Room: [facility] ENDOSCOPY ROOM 1 Note Status: Finalized Patient [...] retrieved. Clip (MR conditional) was placed. Clipmanufacturer: [employer]. - Three 2 to 3 mm polyps [...] passed under direct vision.The Pediatric Colonoscope [id number]-[id number] was introduced through the anus and advanced [...] clip was successfully placed (MR conditional). Clip client service professional: [employer]. There was no bleeding at the end [...] 9:03 AM Procedure Code(s): --- Professional --- 63352, Colonoscopy, flexible; with removal of tumor(s), polyp(s), or other lesion(s) by snare technique 08115, 59, Colonoscopy, flexible; with biopsy, single or multiple --- Technical --- 81302, Colonoscopy, flexible; with removal of tumor(s), polyp(s), or other lesion(s) by snare technique 94190, 59, Colonoscopy, flexible; with biopsy, single or [...] parts of digestive tract CPT copyright 2020 [employer]. All rights reserved. The codes documented in this report are preliminary and upon handle bender reviewmay be revised to meet current compliance requirements. Recognized by the [employer] for promoting quality in endoscopy Mikie Coffey MD ENDOSCOPY PROCEDURES Final Result * PSA screen (12/15/2023 9:28 AM PERINATAL SPECIALIST) PSA-Total 0.90 <=5.40 ng/mL [facility] Comment: Interpretive Data AGE SEX REFERENCE INTERVAL [...] last revised 22. Blood 12/15/2023 9:28 AM PERINATAL SPECIALIST 12/15/2023 2:25 PM PERINATAL SPECIALIST Mickey Bowling MD LAB BLOOD ORDERABLES Final Result [facility] [address] [facility] Department [place] [address] * Hepatitis panel, acute (02/17/2021 8:14 AM CDT) Hep A IgM Nonreactive Nonreactive [facility] Comment: Interpretive Data: If Hep A IgM Ab is reported as Equivocal, a new sample should be drawn in two weeks for testing. Current interpretive data was last revised on 20. Hep B core IgM Nonreactive Nonreactive [facility] Comment: Interpretive Data If HepB Core IgM Ab is reported as Equivocal, a new sample should be drawn in two weeks for testing. Current interpretive data was last revised on 20. Hep C Ab Nonreactive Nonreactive [facility] Comment: Interpretive Data Nonreactive: Antibodies to HCV [...] last revised on 2020. HepBsAg Nonreactive Nonreactive [facility] DAVIDSON Blood specimen (specimen) 02/17/2021 8:14 AM CDT 02/17/2021 1:05 PM CDT Mickey Bowling MD LAB MICROBIOLOGY - GENERAL ORDERABLES Final Result [facility] [place] [address] [address] Department [place] [address] from Last 3 Months or Most Recently Relevant to Health Maintenance Insurance [employer] [id number] [facility] Advance Directives For more information, please contact: [phone] * Full Code (Latest Code Status on File) Date Activated Date Inactivated Comments 06/16/2024 7:44 AM 06/16/2024 1:50 PM * Full Code Date Activated Date Inactivated Comments 06/16/2024 7:44 AM 06/16/2024 7:44 AM * Full Code Date Activated Date Inactivated Comments 02/13/2020 8:38 AM 02/13/2020 2:38 PM * Full Code Date Activated Date Inactivated Comments 02/13/2020 8:37 AM 02/13/2020 8:38 AM Care Teams Hand Polisher Relationship Specialty Start Date End Date Mickey Bowling MD [address] [place] [address] PCP - General 08/10/11 Lily King DO [address] [place] [address] Consulting Physician Otolaryngology 07/20/19
[2025-01-05 19:53] VITALS: BP 168/92; PULSE 86; RESP 20; TEMP 36.6; O2SAT 100
--- OUTSIDE RECORDS SUMMARY | 2025-01-05 23:51 | XMS_ITS | Encounter Summary ---
Author Organization [facility] Address [address] [place] [address] Care Team Providers Care Manager Forms Name Role Phone Mickey Bowling MD Primary Care Provider [phone] Lily King DO Unavailable [phone] Encounter Details Date Type Department Care Team (Late st Contact Info) Description 01/04/2025 Telephone [facility] [address] [place] [address] Mickey Bowling MD [address] [place] [address] Social History Tobacco Use Types Packs/Day Years [...] on file Legal Sex Male 2:03 PM EQUIPMENT ANALYST Gender Identity Not on file Sexual Orientation Not on file documented as of this encounter Miscellaneous Notes * Telephone Encounter - Tex Gomez RN - 01/04/2025 11:43 AM EQUIPMENT ANALYST Spoke to pt et informed of below TLQ result message Pt voices understand et has no further questions @ this time PMENT ANALYST * Telephone Encounter - Mickey Bowling MD - 01/04/2025 11:38 AM EQUIPMENT ANALYST X ray of the hip looks ok 

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
--- OUTSIDE RECORDS SUMMARY | 2025-01-05 23:51 | XMS_ITS | Clinical Summary ---
Author Organization [facility] Address [address] [place] [address] Phone Care Team Providers Care Vehicle Service Agent Name Role Phone Mickey Bowling Ernesto OCHOA Primary Care Provider [phone]- [phone] Allergies Active Allergy Reactions Criticality Noted Date Comments Apple Other (see Comments) 10/18/2024 Swelling of tongue [place] Pollen Allergy Skin Test Other (see Comments) [...] Type Department Care Team Description 10/30/2024 Telephone [facility] [address] [place] [address] Ar Nolan MD 10/24/2024 11:23 AM VECTOR CONTROL SPECIALIST - 10/24/2024 11:59 PM VECTOR CONTROL SPECIALIST [facility] [address] [place] [address] Ar Nolan MD Discharge Disposition: Discharged to home or Selfcare 10/24/2024 9:06 AM VECTOR CONTROL SPECIALIST - 10/24/2024 11:22 AM VECTOR CONTROL SPECIALIST [facility] [address] [place] [address] Provider, Not On File Discharge Disposition: Discharged to home or Selfcare 10/23/2024 Travel 10/18/2024 9:40 AM VECTOR CONTROL SPECIALIST [facility] [address] [place] [address] Ar Nolan MD Axillary lymphadenopathy (Primary Dx); [...] Comments Blood Pressure 157/94 10/18/2024 10:15 AM VECTOR CONTROL SPECIALIST Pulse 82 10/18/2024 10:15 AM VECTOR CONTROL SPECIALIST Temperature 36.9 C (98.4 F) 10/18/2024 10:15 AM VECTOR CONTROL SPECIALIST Respiratory Rate 18 10/18/2024 10:1 5 AM VECTOR CONTROL SPECIALIST Oxygen Saturation 97% 10/18/2024 10: 15 AM VECTOR CONTROL SPECIALIST Inhaled Oxygen Concentration - - Weight 90.6 kg (199 lb 11.2 oz) 024 10:15 AM VECTOR CONTROL SPECIALIST Height 177.8 cm (5' 10 ) 10/18/2024 10: 15 AM VECTOR CONTROL SPECIALIST Body Mass Index 28.65 10/18/2024 10:15 AM VECTOR CONTROL SPECIALIST Plan of Treatment Health Maintenance Due [...] Less Than 2 weeks 10/24/2024 11:55 AM VECTOR CONTROL SPECIALIST Axillary lymphadenopathy POCT CREATININE Routine 10/24/2024 11:[address] REFERENCE IMAGES FOR IMAGE IMPORT Routine 10/24/2024 9:06 AM VECTOR CONTROL SPECIALIST from Last 3 Months Results * CT CHEST W CONTRAST (10/24/2024 11:55 AM VECTOR CONTROL SPECIALIST) Anatomical Region Laterality Modality Chest N/A Computed Tomogra phy 10/24/2024 12:4 8 PM VECTOR CONTROL SPECIALIST Impressions 10/24/2024 12:50 PM VECTOR CONTROL SPECIALIST IMPRESSION: No acute findings identified to suggest etiology of the patient's symptoms. A few physiological appearing fatty lymph nodes are seen in the left axilla. Narrative 10/24/2024 12:50 PM VECTOR CONTROL SPECIALIST EXAM DESCRIPTION: CT CHEST W CONTRAST REASON [...] Jayesh Beasley M.D. JA: [place] Report ID: [id number] Reading Location: [id number] Procedure Note Jayesh Beasley MD - 10/24/2024 [...] Jayesh Beasley M.D. JA: [place] Report ID: [id number] Reading Location: [place] [address] IMPRESSION: No acute findings identified to suggest etiology of the patient's symptoms. A few physiological appearing fatty lymph nodes are seen in the left axilla. us Ar Nolan MD IMG CT ORDERABLES Final Result * POCT Creatinine (10/24/2024 11:44 AM VECTOR CONTROL SPECIALIST) CREATININE - POCT 1.1 0.6 - 1.3 mg/dL 10/24/2024 11:47 AM VECTOR CONTROL SPECIALIST [facility] Blood 10/24/2024 11:4 4 AM VECTOR CONTROL SPECIALIST 10/24/2024 11:47 AM VECTOR CONTROL SPECIALIST us None Provider POINT OF CARE TESTING Final Resu lt [facility] [address] [place] [address] * CT REFERENCE IMAGES FOR IMAGE IMPORT (10/24/2024 9:06 AM VECTOR CONTROL SPECIALIST) us Not On File Provider IMG CT ORDERABLES Final Res ult from Last 3 Months Insurance [facility] Care Teams Vehicle Service Agent Relationship Specialty Start Date End Date Mickey Bowlnig [place] [address] [place] [address] PCP - General Infectious Disease 10/16/24
--- OUTSIDE RECORDS SUMMARY | 2025-01-05 23:52 | XMS_ITS | Clinical Summary ---
Author Organization [facility] [address] Address [address] [place] [address] Phone Care Team Providers Care Property Maintenance Supervisor Name Role Phone Mickey Bowling MD Primary Care Provider [phone] Lily King DO Unavailable [phone] Allergies Active Allergy Reactions Criticality Noted Date Comments Apple Other (See comments) Low . Banana Swelling Medium 07/07/2018 Throat swells [place] Peanut Other (See comments) Low . 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, right 10/31/2018 Overview (10/31/2018): Added automatically from request for surgery [id number] Shoulder pain 01/07/2015 Overview (03/05/2017): Shoulder pain Gastroesophageal reflux disease without esophagi tis 01/07/2015 Overview (03/05/2017): Acid reflux Essential hypertension 04/14/2014 Overview (03/04/2017): Hypertension Assessment & Plan (01/01/2025 6:27 PM MILL OPERATOR HEAD): GOAL BP IS 130/80 OR LESS LOW NA DIET Obstructive sleep apnea syndrome 04/14/2014 Overview (03/04/2017): CRISTÓBAL (obstructive sleep apnea) Mixed hyperlipidemia 04/14/2014 Overview (03/04/2017): Hyperlipidemia Assessment & Plan (01/01/2025 6:27 PM MILL OPERATOR HEAD): GOAL LDL IS UNDER 100 LFT ARE NL Allergic conjunctivitis 04/14/2014 Overview (03/04/2017): Allergic conjunctivitis Encounters Date Type Department Care Team Description 01/04/2025 Telephone [facility] [address] [place] [address] Mickey Bowling MD 01/01/2025 4:15 PM MILL OPERATOR HEAD Ancillary Procedure [facility] [address] [place] [address] Chronic bilateral low back pain, unspecified whether sciatica present 01/01/2025 3:15 PM MILL OPERATOR HEAD [facility] [address] [place] [address] Mickey Bowling MD Chronic bilateral low back pain, unspecified whether sciatica present (Primary Dx); Essential hypertension; Prostate cancer screening; Enlarged lymph nodes in armpit; Mixed hyperlipidemia 12/26/2024 8:50 AM MILL OPERATOR HEAD Lab [facility] [address] [place] [address] Need for hepatitis B screening test; Mixed hyperlipidemia 12/26/2024 8:15 AM MILL OPERATOR HEAD Ancillary Procedure [facility] [address] [place] [address] scan 2024 [facility] [address] [place] [address] Mickey Bowling MD 10/13/2024 Telephone [facility] [address] [place] [address] Gail Chen RN 10/09/2024 3:45 PM MILL OPERATOR HEAD Ancillary Procedure [facility] [address] [place] [address] Enlarged lymph node 10/09/2024 3:15 PM MILL OPERATOR HEAD Office Visit [facility] [address] [place] [address] Mickey Bowling MD Enlarged lymph node (Primary [...] on file Legal Sex Male 2:03 PM MILL OPERATOR HEAD Gender Identity Not on file Sexual Orientation Not on file Obstetrics History Last Filed Vital Signs Vital Sign Reading Time Taken Comments Blood Pressure 124/72 01/01/2025 3:03 PM MILL OPERATOR HEAD Pulse 90 01/01/2025 3:03 PM MILL OPERATOR HEAD Temperature 36.7 C (98 F) 01/01/2025 3:03 PM MILL OPERATOR HEAD Respiratory Rate 16 01/01/2025 3:03 PM MILL OPERATOR HEAD Oxygen Saturation 96% 01/01/2025 3:03 PM MILL OPERATOR HEAD Inhaled Oxygen Concentration - - Weight 93.4 kg (206 lb) 01/01/2025 3:03 PM MILL OPERATOR HEAD Height 177.8 cm (5' 10 ) 01/01/2025 3:03 PM MILL OPERATOR HEAD Body Mass Index 29.56 01/01/2025 3:03 PM MILL OPERATOR HEAD Plan of Treatment Health Maintenance Due Date [...] Read Routine (OP Routine) 01/01/2025 4:01 PM MILL OPERATOR HEAD Chronic bilateral low back pain, unspecified whether sciatica present XR HIP RIGHT 2 OR 3 VIEWS Schedule Routine, Read Routine (OP Routine) 01/01/2025 4:01 PM MILL OPERATOR HEAD Chronic bilateral low back pain, unspecified whether sciatica present US RUQ Schedule Routine, Read Routine (OP Routine) 12/26/2024 8:35 AM MILL OPERATOR HEAD Abnormal CT scan EGFR Routine 12/26/2024 8:06 AM MILL OPERATOR HEAD Mixed hyperlipidemia DIFFERENTIAL AUTO Routine 12/26/2024 8:0 6 AM MILL OPERATOR HEAD Mixed hyperlipidemia LIPID PANEL Routine 12/26/2024 8:06 AM MILL OPERATOR HEAD Mixed hyperlipidemia COMPREHENSIVE METABOLIC PANEL Routine 12/26/2024 8:06 AM MILL OPERATOR HEAD Mixed hyperlipidemia CBC WITH AUTO DIFFERENTIAL Routine 12/26/2024 8:06 AM MILL OPERATOR HEAD Mixed hyperlipidemia HEPATITIS B SURFACE ANTIBODY (IMMUNE STATUS) Routine 12/26/2024 8:06 AM MILL OPERATOR HEAD Need for hepatitis B screening test US AXILLARY NON-BREAST LEFT Schedule Routine, Read Routine (OP Routine) 10/09/2024 4:08 PM MILL OPERATOR HEAD Enlarged lymph node COLONOSCOPY 06/16/2024 9:03 AM CDT PSA SCREEN Routine 12/15/2023 9:28 AM MILL OPERATOR HEAD Routine physical examination Prostate cancer screening HEPATITIS PANEL, ACUTE Routine 02/17/2021 8:14 AM CDT Elevated LFTs from Last 3 Months or Most Recently Relevant to Health Maintenance Results * XR Hip Right 2 or 3 Views (01/01/2025 4:01 PM MILL OPERATOR HEAD) Anatomical Region Laterality Modality Lower Extremities, Hip, Pelvis Right C omputed Radiography 01/01/2025 9:23 PM MILL OPERATOR HEAD Narrative 01/01/2025 9:24 PM MILL OPERATOR HEAD EXAM DESCRIPTION: XR HIP RIGHT 2 OR [...] Geo Rosario M.D. MF: CLINTON Report ID: [id number] Reading Location: [id number] Procedure Note Geo Rosario MD - 01/01/2025 [...] Geo Rosario M.D. MF: CL[place]ON Report ID: [id number] Reading Location: [place] [address] us Mickey Bowling MD IMG XR PROCEDURES Final Re sult * XR Spine Lumbar 2 or 3 Views (01/01/2025 4:01 PM MILL OPERATOR HEAD) Anatomical Region Laterality Modality Spine N/A Computed Radiogr aphy 01/01/2025 9:23 PM MILL OPERATOR HEAD Narrative 01/01/2025 9:24 PM MILL OPERATOR HEAD EXAM DESCRIPTION: XR HIP RIGHT 2 OR [...] Geo Rosario M.D. MF: [place] Report ID: [id number] Reading Location: [id number] Procedure Note Geo Rosario MD - 01/01/2025 [...] Geo Rosario M.D. MF: [place] Report ID: [id number] Reading Location: [id number] us Mickey Ernesto Bowling MD IMG XR PROCEDURES Final Re sult * US RUQ (12/26/2024 8:35 AM MILL OPERATOR HEAD) Anatomical Region Laterality Modality Abdomen N/A Ultrasound 12/27/2024 9:35 AM MILL OPERATOR HEAD Narrative 12/27/2024 9:38 AM MILL OPERATOR HEAD EXAM DESCRIPTION: US RUQ REASON FOR STUDY: [...] thickening or pericholecystic fluid. No positive sonographic Monument sign reported. BILIARY: There is no intrahepatic [...] Vito Sarah M.D. RB: EMILIANO Report ID: [id number] Reading Location: [id number] Procedure Note Vito Sarah MD - 12/27/2024 [...] wall thickening or pericholecystic fluid. No positivesonographic Monument sign reported. BILIARY: There is no intrahepatic [...] Vito Sarah M.D. RB: EMILIANO Report ID: [id number] Reading Location: [place] [address] us Mickey Bowling MD IMG US PROCEDURES Final Re sult * eGFR (12/26/2024 8:06 AM MILL OPERATOR HEAD) eGFR 77 >=60 mL/min/1. 73 m2 Comment: [...] was last reviewed 2021. Testing performed by: [facility], [address] [place] [address], [place]., [address] Blood 12/26/2024 8:06 AM MILL OPERATOR HEAD 12/26/2024 1:44 PM MILL OPERATOR HEAD us Mickey Bowling MD LAB BLOOD ORDERABLES Final Result [facility] [id number] [place] [address] Department [place] [address] * Differential, auto (12/26/2024 8:06 AM MILL OPERATOR HEAD) Neutrophil abs 3.2 1.5 - 6.5 K/cumm Comment:Testing performed by : [facility], [address] [place] [address]., [address] Imm gran abs 0.0 0.0 - 0.1 K/cumm CERNER Comment:Testing performed by : [facility], [address] [place] [address]., [address] Lymphocyte abs 1.6 0.8 - 3.3 K/cumm CERNER Comment:Testing performed by : [address] [address] Monocyte abs 0.8 0.2 - 0.8 K/cumm CERNER Comment:Testing performed by : [address] [address] Eosinophil abs 0.1 0.0 - 0.5 K/cumm CERNER Comment:Testing performed by : [address] [address] Basophil abs 0.1 0.0 - 0.1 K/cumm CERNER Comment:Testing performed by : [address] [address] Neutrophil pct 55.6 % CERNER Comment: Interpretive Data Percent cell count reference ranges are not reported, since discordance with absolute values may lead to misinterpretation of CBC data. Current Interpretive Data was last revised on 2018. Testing performed by: [address] [address] Imm gran pct 0.7 % CERNER Comment: Interpretive Data Percent cell count reference ranges are not reported, since discordance with absolute values may lead to misinterpretation of CBC data. Current Interpretive Data was last revised on 2018. Testing performed by: [address] [address] Lymphocyte pct 27.0 % CERNER Comment: Interpretive Data Percent cell count reference ranges are not reported, since discordance with absolute values may lead to misinterpretation of CBC data. Current Interpretive Data was last revised on 2018. Testing performed by: [facility], [address] [place] [address]., [address] Monocyte pct 13.4 % [facility] Comment: Interpretive Data Percent cell count reference ranges are not reported, since discordance with absolute values may lead to misinterpretation of CBC data. Current Interpretive Data was last revised on 2018. Testing performed by: [address] [address] Eosinophil pct 1.9 % [facility] Comment: Interpretive Data Percent cell count reference ranges are not reported, since discordance with absolute values may lead to misinterpretation of CBC data. Current Interpretive Data was last revised on 2018. Testing performed by: [address] [address] Basophil pct 1.4 % [facility] Comment: Interpretive Data Percent cell count reference ranges are not reported, since discordance with absolute values may lead to misinterpretation of CBC data. Current Interpretive Data was last revised on 2018. Testing performed by: [address] [address] Blood 12/26/2024 8:06 AM MILL OPERATOR HEAD 12/26/2024 1:21 PM MILL OPERATOR HEAD Mickey Bowling MD LAB BLOOD ORDERABLES Final Result [address] Department [place] [address] * CBC with auto differential (12/26/2024 8:06 AM MILL OPERATOR HEAD) WBC 5.7 3.8 - 9.9 K/cumm Comment:Testing performed by : [address] [address] Hgb 14.5 13.0 - 17.5 g/dL ARMOND Comment:Testing performed by : [address], [address] Hct 43.7 38.9 - 50.3 % [facility] Comment:Testing performed by : [address] [address] Plt 238 150 - 400 K/cumm CERNER CH Comment:Testing performed by : [address], [address] MPV 10.9 9.1 - 12.3 fL CERNER CH Comment:Testing performed by : [facility], [address] [place] [address], [address] RBC 4.77 4.30 - 5.80 M/cumm CERNER CH Comment:Testing performed by : [address], [address] MCV 91.6 81.3 - 96.4 fL CERNER CH Comment:Testing performed by : [address], [address] MCH 30.4 27.1 - 33.3 pg CERNER CH Comment:Testing performed by : [address], [address] MCHC 33.2 32.3 - 35.7 g/dL CERNER CH Comment:Testing performed by : [address], [address] RDW CV 12.6 11.1 - 14.9 % CERNER CH Comment:Testing performed by : [address], [address] RDW SD 42.0 35.7 - 48.1 fL CERNER CH Comment:Testing performed by : [address], [address] NRBC abs 0.00 0.00 - 0.01 K/cumm CERNER CH Comment:Testing performed by : [address], [address] Blood 12/26/2024 8:06 AM MILL OPERATOR HEAD 12/26/2024 1:21 PM MILL OPERATOR HEAD Mickey Bowilng MD LAB BLOOD ORDERABLES Final Result [address] Department [place] [address] * Hepatitis B surface antibody (immune status) Blood (12/26/2024 8:06 AM MILL OPERATOR HEAD) HBsAb (immune status) Nonreactive Comment: Interpretive Data [...] last revised on 20. Testing performed by: [facility], [address] [place] [address]., [address] Blood 12/26/2024 8:06 AM MILL OPERATOR HEAD 12/26/2024 1:21 PM MILL OPERATOR HEAD Mickey Bowling MD LAB MICROBIOLOGY - GENERAL ORDERABLES Final Result [facility] [address] Department [place] [address] * (ABNORMAL) Lipid panel (12/26/2024 8:06 AM MILL OPERATOR HEAD) Cholesterol 223(H) 30 - 199 mg/dL Comment: [...] last revised on 2018. Testing performed by: [facility], [address] [place] [address]., [address] Triglycerides 163(H) <=149 mg/dL [facility] DAVIDSON Comment: [...] last revised on 2018. Testing performed by: [facility], [address] [place] [address]., [address] HDL 48 >=40 mg/dL [facility] Comment: Interpretive Data Ages < or = [...] last revised on 2018. Testing performed by: [facility], [address] [place] [address]., [address] LDL, calculated 146(H) <=129 mg/dL [facility] Comment: Interpretive Data [...] last revised on 2024. Testing performed by: [address] [address] Non-HDL Cholesterol 175 mg/dL CERNER Comment: Interpretive [...] last revised on 2018. Testing performed by: [address], [address] Chol/HDL ratio 5 CERNER Comment:Testing performed by : [address] [address] Blood 12/26/2024 8:06 AM MILL OPERATOR HEAD 12/26/2024 1:21 PM MILL OPERATOR HEAD Mickey Bowling MD LAB BLOOD ORDERABLES Final Result [address] Department [place] [address] * Comprehensive metabolic panel (12/26/2024 8:06 AM MILL OPERATOR HEAD) Sodium 140 135 - 145 mmol/L Comment:Testing performed by : [address] [address] Potassium, pl 4.6 3.3 - 4.9 mmol/L CERNER Comment:Testing performed by : [address] [address] Chloride 105 97 - 110 mmol/L CERNER Comment:Testing performed by : [address] [address] CO2 24 22 - 32 mmol/L CERNER CH Comment:Testing performed by : [address] [address] Anion gap 11 2 - 15 mmol/L CERNER Comment:Testing performed by : [address] [address] BUN 20 6 - 25 mg/dL CERNER CH Comment:Testing performed by : [address] [address] Creatinine 1.08 0.80 - 1.30 mg/dL CERNER CH Comment:Testing performed by : [address], [address] Glucose 118 70 - 199 mg/dL CERNER [...] was last revised 2022. Testing performed by: [address], [address] Calcium 9.9 8.5 - 10.3 mg/dL CERNER CH Comment:Testing performed by : [address], [address] Bilirubin, total 0.6 0.1 - 1.2 mg/dL CERNER CH Comment:Testing performed by : [address], [address] Protein, pl 6.5 6.5 - 8.5 g/dL CERNER CH Comment:Testing performed by : [address], [address] Albumin 4.5 3.5 - 5.0 g/dL CERNER CH Comment:Testing performed by : [address], [address] Alk phos 87 40 - 130 Units/L CERNER CH Comment:Testing performed by : [address], [address] ALT 26 7 - 55 Units/L CERNER CH Comment:Testing performed by : [address], [address] AST 26 10 - 50 Units/L CERNER CH Comment:Testing performed by : [address], [place]., [address] Blood 12/26/2024 8:06 AM MILL OPERATOR HEAD 12/26/2024 1:21 PM MILL OPERATOR HEAD us Mickey Ernesto Bowling MD LAB BLOOD ORDERABLES Final Result Performing Organization Address City/State/[facility] Co de Phone Number [facility] [address] [facility] Department [place] [address] * US Axillary Left Non-Breast (10/09/2024 4:08 PM MILL OPERATOR HEAD) Anatomical Region Laterality Modality Upper Extremities Left Ultrasound 10/13/2024 8:48 AM MILL OPERATOR HEAD Narrative 10/13/2024 8:57 AM MILL OPERATOR HEAD EXAM DESCRIPTION: US AXILLARY NON-BREAST LEFT REASON [...] abnormality in the left axilla by the wildlife officer, with selected grayscale and color Doppler images [...] Electronically signed by Lucman GALO Report ID: [id number] Reading Location: [id number] Procedure Note Tori Schultz MD - 10/13/2024 [...] abnormality in the left axilla by the wildlife officer, with selectedgrayscale and color Doppler images acquired [...] signed by Sony GALO: CLOVER Report ID: [id number] Reading Location: [id number] us Mickey Bowling MD IMG US PROCEDURES Final Re sult * Colonoscopy (06/16/2024 9:03 AM CDT) Anatomical Region Laterality Modality Other Narrative Procedure Note Mikie Coffey MD - 06/16/2024 9:03 AM CDT [facility] Patient Name: Porfirio Haywood Procedure Date: 06/16/2024 9:03 AM Date of : 1960 Admit Type: Outpatient Age: 63 Gender: Male Attending MD: Mikie Coffey M.D. Room: [facility] RO[facility] 1 Note Status: Finalized Patient [...] retrieved. Clip (MR conditional) was placed. Clipmanufacturer: [employer]. - Three 2 to 3 mm polyps [...] passed under direct vision.The Pediatric Colonoscope [id number] was introduced through the anus and advanced [...] clip was successfully placed (MR conditional). Clip dat instructor: Volofy. There was no bleeding at the end [...] 9:03 AM Procedure Code(s): --- Professional --- 95349, Colonoscopy, flexible; with removal of tumor(s), polyp(s), or other lesion(s) by snare technique 93892, 59, Colonoscopy, flexible; with biopsy, single or multiple --- Technical --- 87198, Colonoscopy, flexible; with removal of tumor(s), polyp(s), or other lesion(s) by snare technique 51689, 59, Colonoscopy, flexible; with biopsy, single or [...] parts of digestive tract CPT copyright 2020 [employer]. All rights reserved. The codes documented in this report are preliminary and upon hims coder reviewmay be revised to meet current compliance requirements. Recognized by the [employer] for promoting quality in endoscopy Mikie Coffey MD ENDOSCOPY PROCEDURES Final Result * PSA screen (12/15/2023 9:28 AM MILL OPERATOR HEAD) PSA-Total 0.90 <=5.40 ng/mL [facility] DAVIDSON Comment: [...] last revised 22. Blood 12/15/2023 9:28 AM MILL OPERATOR HEAD 12/15/2023 2:25 PM MILL OPERATOR HEAD Mickey Bowling MD LAB BLOOD ORDERABLES Final Result [facility] [address] [place] [address] * Hepatitis panel, acute (02/17/2021 8:14 AM CDT) Hep A IgM Nonreactive Nonreactive [facility] Comment: Interpretive Data: If Hep A IgM Ab is reported as Equivocal, a new sample should be drawn in two weeks for testing. Current interpretive data was last revised on 20. Hep B core IgM Nonreactive Nonreactive [facility] Comment: Interpretive Data If HepB Core IgM Ab is reported as Equivocal, a new sample should be drawn in two weeks for testing. Current interpretive data was last revised on 20. Hep C Ab Nonreactive Nonreactive [facility] Comment: Interpretive Data Nonreactive: Antibodies to HCV [...] last revised on 2020. HepBsAg Nonreactive Nonreactive [facility] Blood specimen (specimen) 02/17/2021 8:14 AM CDT 02/17/2021 1:05 PM CDT Mickey Bowling MD LAB MICROBIOLOGY - GENERAL ORDERABLES Final Result [facility] [address] Department [place] [address] from Last 3 Months or Most Recently Relevant to Health Maintenance Insurance [employer] SIG [id number] [facility] Advance Directives For more information, please contact: [phone] * Full Code (Latest Code Status on File) Date Activated Date Inactivated Comments 06/16/2024 7:44 AM 06/16/2024 1:50 PM * Full Code Date Activated Date Inactivated Comments 06/16/2024 7:44 AM 06/16/2024 7:44 AM * Full Code Date Activated Date Inactivated Comments 02/13/2020 8:38 AM 02/13/2020 2:38 PM * Full Code Date Activated Date Inactivated Comments 02/13/2020 8:37 AM 02/13/2020 8:38 AM Care Teams Property Maintenance Supervisor Relationship Specialty Start Date End Date Mickey Bowling MD [address] [place] [address] PCP - General 08/10/11 Lily King DO [address] [place] [address] Consulting Physician Otolaryngology 07/20/19
--- OUTSIDE RECORDS SUMMARY | 2025-01-05 23:52 | XMS_ITS | Encounter Summary ---
Author Organization [facility] Address [address] [place] [address] Phone Care Team Providers Care Plasma Specialist Name Role Phone Mickey Bowling MD Primary Care Provider [phone] Lily King DO Unavailable [phone] Encounter Details Date Type Department Care Team (Late st Contact Info) Description 05/04/2022 Orders Only [facility] [address] [place] [address] Scanning, Provider Social History Tobacco [...] on file Legal Sex Male 2:03 PM SUPERVISOR [employer] Gender Identity Not on file Sexual Orientation [...] COVID: Suspected 10/20/2022 10/20/2022 10/20/2022 3:53 PM SUPERVISOR [employer]IVER[employer] documented as of this encounter Care Teams Plasma Specialist Relationship Specialty Start Date End Date Mickey Bowling MD [address] [place] [address] PCP - General 08/10/11 Lily King DO [address] [address] Consulting Physician Otolaryngology 07/20/19 documented as of this encounter
--- NOTE | 2025-01-05 23:59 | ED.UPPEXIN ---
HPI - Extremity Injury (Upper) General Chief Complaint: Extremity Injury, Upper Stated Complaint: shoulder pain, fall from laddr Time Seen by Provider: 01/05/25 23:37 Source: patient Mode of arrival: ambulatory Limitations: no limitations History of Present Illness HPI narrative: This is a 64-year-old male that presents to the emergency department after a fall today with left shoulder injury. Reports he missed a step on the ladder. Believes he fell about 2-3 feet. Landed on his left shoulder. He did not hit his head or lose consciousness. Reports left shoulder pain with decreased range of motion. Denies focal numbness or weakness. Related Data Home Medications ?Medication ?Instructions ?Recorded ?Confirmed ?Last Taken ?Type allopurinol 100 mg tablet 100 mg PO DAILY 10/18/23 10/18/23 Unknown History famotidine 20 mg tablet 20 mg PO DAILY 10/18/23 10/18/23 Unknown History lisinopril 10 mg tablet 10 mg PO DAILY 10/18/23 10/18/23 Unknown History metoprolol succinate 50 mg 50 mg PO DAILY 10/18/23 10/18/23 Unknown History tablet,extended release 24 hr pantoprazole 40 mg tablet,delayed 40 mg PO DAILY 10/18/23 10/18/23 Unknown History release rosuvastatin 20 mg tablet 20 mg PO DAILY 10/18/23 10/18/23 Unknown History Allergies Allergy/AdvReac Type Severity Reaction Status Date / Time ONE UNKNOWN MEDICATION Allergy Mild Unknown Uncoded 10/18/23 10:24 ALLERGY TREE POLLEN--MOSTLY OAK Allergy Mild Unknown Uncoded 10/18/23 10:24 Review of Systems Review of Systems: CONSTITUTIONAL: Denies fever GASTROINTESTINAL: Denies vomiting MUSCULOSKELETAL: Reports joint pain and myalgia. Denies back pain NEUROLOGIC: Denies numbness, or weakness. All systems reviewed & are unremarkable except as noted in HPI and below PMFSH Past Medical History Medical History (Updated 01/06/25 @ 00:53 by Argelia Shabazz PA-C) History of hyperlipidemia History of hypertension Exam Narrative: GENERAL: Well-appearing, well-nourished, and in no acute distress. HEAD: Normocephalic, atraumatic. EYES: PERRLA and EOMI. ENT: Nares clear, no rhinorrhea or epistaxis. Mucous membranes moist. Oropharynx without tonsillar hypertrophy exudate or other lesions. Bilateral TMs pearly ruvalcaba non-bulging NECK: Supple. No adenopathy or masses. No midline spinal tenderness CHEST: Clear to auscultation. No respiratory distress. No wheezes rales or rhonchi HEART: Regular rate and rhythm. No murmur heard. Normal peripheral pulses. BACK: No midline spinal tenderness EXTREMITIES: Decreased active ROM in the left shoulder due to pain. No edema or obvious deformity. Normal radial pulse. Normal sensation SKIN: Warm, dry, no rash. NEURO: No focal deficits. Alert and oriented x3. PSYCH: Normal mood and affect Course Course Emergency Course: Patient updated on his workup and agrees with plan of care Vital Signs Vital signs: Vital Signs Temperature 97.8 F 01/05/25 19:53 Pulse Rate 86 01/05/25 19:53 Respiratory Rate 20 01/05/25 19:53 Blood Pressure 168/92 H 01/05/25 19:53 Pulse Oximetry 100 01/05/25 19:53 Oxygen Delivery Room Air 01/05/25 19:53 Temperature 97.8 F 01/05/25 19:53 Pulse Rate 86 01/05/25 19:53 Respiratory Rate 20 01/05/25 19:53 Blood Pressure 168/92 H 01/05/25 19:53 Pulse Oximetry 100 01/05/25 19:53 Oxygen Delivery Room Air 01/05/25 19:53 MDM - Extremity Injury (Upper) MDM Narrative Medical decision making narrative: Patient presents to the emergency department after a fall today with left shoulder pain. Did not hit his head or lose consciousness. No other focal injuries or areas of pain. Left shoulder x-ray without acute osseous abnormalities. Patient updated on his workup. Placed in a sling for comfort. Instructed to follow-up with orthopedics. He was given warnings to return to the ER Differential Diagnosis Differential diagnosis: Likely dislocation of shoulder, fracture of humerus and other (Shoulder sprain, contusion) Imaging Data Radiologist's impression: ITS Impressions Shoulder X-Ray 01/05/25 20:31 IMPRESSION: No acute fracture or anterior dislocation. Critical Care Time Critical Care Time Critical Care Time: No Discharge Plan Discharge Clinical Impression: Acute pain of left shoulder Patient Disposition: Home, Self-Care Condition: Stable Instructions: Shoulder Pain (ED) Additional Instructions: Return to the ER if you experience fever, redness and swelling of your arm, weakness, numbness, or any other symptoms that are concerning to you Rest, use ice, take anti-inflammatories (Aleve, Ibuprofen, Naproxen, etc) or Tylenol as needed for pain Follow up with Dr. Bear, Dr. Benson is our transition of care specialist orthopedist tonight if needed Patient Language: Telugu Prescriptions: No Action metoprolol succinate 50 mg tablet extended release 24 hr 50 mg PO DAILY allopurinol 100 mg tablet 100 mg PO DAILY famotidine 20 mg tablet 20 mg PO DAILY pantoprazole 40 mg tablet,delayed release (DR/EC) 40 mg PO DAILY lisinopril 10 mg tablet 10 mg PO DAILY rosuvastatin 20 mg tablet 20 mg PO DAILY Follow-up/Referrals: Hilario Benson MD [Physician] - Dash,MD Mickey [Primary Care Provider] - Antoine Bear MD [Physician] -
[2025-01-06] MEDS: KETOROLAC 30 MG/ML VIAL (*BKC) IM (00:18)
== END 2025-01-06 00:48 | disposition home or self-care (01) ==
PROVIDERS: Emergency Provider Physician Assistant; PCP Internal Medicine Infectious Disease
DX: M25.512 Pain in left shoulder (principal); W19.XXXA Unspecified fall, initial encounter; E78.5 Hyperlipidemia, unspecified; I10 Essential (primary) hypertension
CPT/HCPCS: 73030; 96372; 99283; A4565; J1885

== ENCOUNTER 2025-01-15 09:37 | Outpatient (CLI) | payer OTHER, SELFPAY ==
--- NOTE | ~2025-01-15 | MR_ITS ---
EXAMINATION: MR shoulder LT wo con DATE: 01/15/2025 10:11 INDICATION: Left shoulder pain TECHNIQUE: Magnetic resonance imaging (MRI) of the left shoulder was performed without intravenous co ntrast. Sequences included axial PD-weighted FS FSE, coronal oblique PD-weighted FS FSE, coronal obli que T2-weighted FS FSE, sagittal PD-weighted FS FSE, and sagittal T1-weighted SE. COMPARISON: None. FINDINGS: Coracoacromial arch: The acromion undersurface is curved in morphology (type II). The coracoacromial ligament is normal. M ild acromioclavicular osteoarthritis. Rotator cuff: Thickness rotator cuff tear of the distal supraspinatus and infraspinatus tendons which occurs near t he superior middle facet footplates with minimal amount of residual frayed tendon material along the footplate. There is 3 cm medial retraction of the supraspinatus tear margin which is positioned sligh tly medial to the apex of the humeral head. There is severe tendinopathy extending 2 cm medially from the supraspinatus tear margin and 3 cm medially from the infraspinatus tear margin. The teres minor tendon is normal. The tear extends across the rotator cuff interval to involve the cephalad fourth of the subscapularis tendon which is retracted 2 cm medially from the lesser tuberosity footplate. Mild to moderate subscapularis tendinopathy. There is mild medial retraction of the supraspinatus muscle belly but no fatty atrophy. Biceps tendon, glenoid labrum and glenohumeral cartilage: Long head of the biceps tendon is normal but is subluxed across the cephalad aspect of the medial rim of the intertubercular groove and across the subscapularis tear defect. The coracohumeral ligament i s torn. Likely degeneration of the inferior glenoid labrum which appears diminutive and partially rep laced by small marginal osteophyte along the inferior glenoid. Glenohumeral cartilage is normal. Fluid: Small to moderate-sized glenoid humeral joint effusion which extends through the full-thickness rotat or cuff tear into the subacromial/subdeltoid bursa. Increased fluid with tenosynovitis in the long he ad eyes of tendon sheath. No loose osteochondral bodies. Bones: There is cephalad subluxation of the humeral head with respect to the glenoid secondary to rotator cu ff tear with narrowing of the subacromial space which measures 2.5 mm from the surface of the cartila ge the apex of the humeral head and the cortex and undersurface of the acromion. No fracture or patho logic marrow replacing process. IMPRESSION: 1. Complete full-thickness tears near the footplates of the distal supraspinatus and infraspinatus te ndons with severe associated tendinopathy. There is extension across the rotator cuff interval to inv olve the cephalad fourth of the subscapularis tendon with associated tear of the coracohumeral ligame nt. 2. Bicipital tenosynovitis with subluxation of the normal long head biceps tendon across the cephalad medial rim of the intertubercular groove and across the subscapularis tendon tear defect. 3. 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 Reviewed, dictated and finalized at location A. [employer]IC TH[employer] W[employer]ER IMPRESSION: 1. Complete full-thickness tears near the footplates of the distal supraspinatu s and infraspinatus tendons with severe associated tendinopathy. There is exten sony across the rotator cuff interval to involve the cephalad fourth of the sub scapularis tendon with associated tear of the coracohumeral ligament. 2. Bicipital tenosynovitis with subluxation of the normal long head biceps tend on across the cephalad medial rim of the intertubercular groove and across the subscapularis tendon tear defect. 3. Mild glenohumeral osteoarthritis with degeneration of the inferior glenoid l abrum.
== END 2025-01-15 09:38 | disposition home or self-care (01) ==
LOC: GOSHIMG 09:37
PROVIDERS: PCP Orthopaedic Surgery; Visit Provider Orthopaedic Surgery
DX: M75.102 Unspecified rotator cuff tear or rupture of left shoulder, not specified as traumatic (principal); M75.22 Bicipital tendinitis, left shoulder; M19.012 Primary osteoarthritis, left shoulder
CPT/HCPCS: 73221